=== PATIENT | male | born 1960 | race African-American/Black ===

== ENCOUNTER 2017-08-12 15:40 | Inpatient (IN) | payer MEDICARE, OTHER ==
--- NOTE | 2017-08-12 16:55 | ER Document Report ---
ED Medical Screen (RME) - General Chief Complaint: Shortness Of Breath Stated Complaint: BREATHING DIFFICULTY Time Seen by Provider: 08/12/17 16:54 Notes: Patient states that he has had several days of feeling short of breath and significant dyspnea on exertion. He has a history of 6 stents and 2 cabg TRAVEL OUTSIDE OF THE U.S. IN LAST 30 DAYS: No - Related Data Allergies/Adverse Reactions: Penicillins Allergy (Verified 08/12/17 15:48) shellfish derived Allergy (Verified 08/12/17 15:48) Past Medical History - Social History Chew tobacco use (# tins/day): No Frequency of alcohol use: None Drug Abuse: None - Past Medical History Cardiac Medical History: Reports: Hx Congestive Heart Failure, Hx Heart Attack - 5 Pulmonary Medical History: Reports: Hx COPD Renal/ Medical History: Denies: Hx Peritoneal Dialysis Past Surgical History: Reports: Hx Cardiac Catheterization, Hx Cardiac Surgery, Hx Open Heart Surgery - CABG EF 26%, Hx Orthopedic Surgery, Hx Vascular Surgery Physical Exam - Vital signs Vitals: Temp Pulse Resp BP Pulse Ox 97.8 F 99 24 H 109/72 92 08/12/17 15:43 08/12/17 15:43 08/12/17 15:43 08/12/17 15:43 08/12/17 15:43 Course - Vital Signs Vital signs: Temp Pulse Resp BP Pulse Ox 97.8 F 99 24 H 109/72 92 08/12/17 15:43 08/12/17 15:43 08/12/17 15:43 08/12/17 15:43 08/12/17 15:43
[2017-08-12 17:40] LABS: ABSOLUTE BASOPHILS # (AUTO) 0.1 10^3/uL (0.0-0.2); ABSOLUTE LYMPHOCYTES (AUTO) 2.2 10^3/uL (0.5-4.7); ABSOLUTE MONOCYTES (AUTO) 0.3 10^3/uL (0.1-1.4); ABSOLUTE NEUT (AUTO) 3.9 10^3/uL (1.7-8.2); BASOPHILS % (AUTO) 1.2 % (0-2); EOSINOPHILS % (AUTO) 0.4 % (0-6); HEMATOCRIT 41.7 % (37.9-51.0); HEMOGLOBIN 13.2 g/dL (13.5-17.0); LYMPHOCYTES % (AUTO) 33.9 % (13-45); MEAN CORPUSCULAR HEMOGLOBIN 28.8 pg (27.0-33.4); MEAN CORPUSCULAR HGB CONC 31.6 g/dL (32.0-36.0); MEAN CORPUSCULAR VOLUME 91 fl (80-97); MONOCYTES % (AUTO) 4.5 % (3-13); PLATELET COUNT 220 10^3/uL (150-450); RED BLOOD COUNT 4.57 10^6/uL (4.35-5.55); RED CELL DISTRIBUTION WIDTH 18.7 % (11.5-14.0); TOTAL CELLS COUNTED % (AUTO) 100 %; WHITE BLOOD COUNT 6.6 10^3/uL (4.0-10.5)
--- NOTE | 2017-08-12 17:43 | RADIOLOGY REPORT (SQ) ---
EXAM DESCRIPTION: CHEST PA/LAT COMPLETED DATE/TIME: 08/12/2017 5:30 pm REASON FOR STUDY: cough/sob COMPARISON: None. EXAM PARAMETERS: NUMBER OF VIEWS: two views TECHNIQUE: Digital Frontal and Lateral radiographic views of the chest acquired. RADIATION DOSE: NA LIMITATIONS: none FINDINGS: LUNGS AND PLEURA: There is blunting of the costophrenic angles consistent with small pleur al effusions. There is prominence of the interstitial markings suggesting interstitial edema. MEDIASTINUM AND HILAR STRUCTURES: No masses or contour abnormalities. HEART AND VASCULAR STRUCTURES: Cardiac silhouette is enlarged. There is pulmonary vascular congestio n BONES: No acute findings. HARDWARE: AICD device is identified in position OTHER: No other significant finding. IMPRESSION: Congestive failure pattern as noted above. TECHNICAL DOCUMENTATION: JOB ID: [id number] [employer]- All Rights Reserved Reading location - IP/workstation name: [email or web address]
[2017-08-12 18:03] LABS: ALANINE AMINOTRANSFERASE 60 U/L (21-72); ALBUMIN 3.7 g/dL (3.5-5.0); ALKALINE PHOSPHATASE 115 U/L (38-126); ANION GAP 13 (5-19); ASPARTATE AMINO TRANSFERASE 38 U/L (17-59); BILIRUBIN,DIRECT 0.8 mg/dL (0.0-0.4); BILIRUBIN,TOTAL 1.2 mg/dL (0.2-1.3); BLOOD UREA NITROGEN 24 mg/dL (7-20); CALCIUM 9.4 mg/dL (8.4-10.2); CARBON DIOXIDE 26 mmol/L (22-30); CHLORIDE 107 mmol/L (98-107); GLUCOSE 98 mg/dL (75-110); POTASSIUM 3.3 mmol/L (3.6-5.0); SODIUM 145.6 mmol/L (137-145); TOTAL PROTEIN 7.6 g/dL (6.3-8.2)
[2017-08-12 18:18] LABS: TROPONIN I 0.045 ng/mL
--- NOTE | 2017-08-12 20:20 | ER Document Report ---
ED Respiratory Problem - General Chief Complaint: Shortness Of Breath Stated Complaint: BREATHING DIFFICULTY Time Seen by Provider: 08/12/17 16:54 Mode of Arrival: Ambulatory Information source: Patient, Relative TRAVEL OUTSIDE OF THE U.S. IN LAST 30 DAYS: No - HPI Patient complains to provider of: Short of breath Onset: Last week Duration: Continuous Initiating Event: Out of meds Quality of pain: Other - CHRONIC, MUSCULOSKELETAL Context: Hx CHF, Hx COPD, Smoker - FORMERLY Short of Breath: Moderate Chest pain/discomfort: Center Cough: Nonproductive Sputum amount: None Associated symptoms: Chest pain/discomfort, Extertional dyspnea, Short of breath , Sweaty, Wheezing. denies: Ankle/leg swelling, Chills, Fever Worsened by: ANY EXERTION Similar symptoms previously: Yes Recently seen / treated by doctor: No Notes: Patient states he moved to [place] from [place] a few weeks ago, and since then has run out of many of his medications, including Xarelto, Entresto, cyclobenzaprine, morphine, OxyContin, and furosemide. He plans to stay in [place], and has no plans to return to [place]. - Related Data Allergies/Adverse Reactions: Penicillins Allergy (Verified 08/12/17 15:48) shellfish derived Allergy (Verified 08/12/17 15:48) Past Medical History - General Information source: Patient - Social History Smoking Status: Former Smoker Cigarette use (# per day): No Chew tobacco use (# tins/day): No Frequency of alcohol use: None Drug Abuse: None Lives with: Family Family History: None Patient has suicidal ideation: No Patient has homicidal ideation: No - Past Medical History Cardiac Medical History: Reports: Hx Congestive Heart Failure, Hx Coronary Artery Disease, Hx Heart Attack - 5, Hx Hypertension, Other - ISCHEMIC CARDIOMYOPATHY Pulmonary Medical History: Reports: Hx COPD Neurological Medical History: Reports: None Endocrine Medical History: Reports: None Renal/ Medical History: Reports: None. Denies: Hx Peritoneal Dialysis GI Medical History: Reports: None Musculoskeltal Medical History: Reports Hx Arthritis Psychiatric Medical History: Reports: None Past Surgical History: Reports: Hx Cardiac Catheterization, Hx Cardiac Surgery, Hx Open Heart Surgery - CABG EF 26%, Hx Orthopedic Surgery, Hx Vascular Surgery Review of Systems - Review of Systems Constitutional: No symptoms reported. denies: Chills, Fever EENT: No symptoms reported Cardiovascular: See HPI Respiratory: See HPI Gastrointestinal: No symptoms reported Musculoskeletal: See HPI Skin: No symptoms reported Neurological/Psychological: No symptoms reported Physical Exam - Vital signs Vitals: Temp Pulse Resp BP Pulse Ox 97.8 F 99 24 H 109/72 92 08/12/17 15:43 08/12/17 15:43 08/12/17 15:43 08/12/17 15:43 08/12/17 15:43 Interpretation: Tachypneic. No: Hypotensive, Tachycardic, Hypoxic, Febrile - General General appearance: Appears well, Alert In distress: None - HEENT Head: Normocephalic Eyes: Normal Conjunctiva: Normal Ears: Normal Nasal: Normal Mouth/Lips: Normal Mucous membranes: Normal - Respiratory Respiratory status: No respiratory distress Breath sounds: Wheezing - MILD END EXP., [place] - Cardiovascular Rhythm: Regular Heart sounds: Normal auscultation Murmur: No - Abdominal Inspection: Normal Distension: No distension - Back Back: Normal - Extremities General upper extremity: Normal inspection General lower extremity: Normal inspection. No: Tender, Edema - Neurological Neuro grossly intact: Yes Cognition: Normal Orientation: AAOx4 - Psychological Associated symptoms: Normal affect, Normal mood - Skin Skin Temperature: Warm Skin Moisture: Dry Skin Color: Normal Skin Turgor: Elastic Course - Vital Signs Vital signs: Temp Pulse Resp BP Pulse Ox 97.8 F 99 19 111/82 96 08/12/17 15:43 08/12/17 15:43 08/12/17 21:01 08/12/17 21:00 08/12/17 21:01 - Laboratory Result Diagrams: 08/12/17 17:20 08/12/17 17:20 Laboratory results interpreted by me: 08/12/17 08/12/17 08/12/17 17:20 17:20 17:20 Hgb 13.2 L MCHC 31.6 L RDW 18.7 H Sodium 145.6 H Potassium 3.3 L BUN 24 H Direct Bilirubin 0.8 H NT-Pro-B Natriuret Pep 34105 H - Diagnostic Test Radiology reviewed: Image reviewed, Reports reviewed - EKG Interpretation by Me EKG shows normal: Sinus rhythm Rate: Normal [place]/QRS: LBBB P Waves: LAE Heart block present: 1st Degree Discharge - Discharge Clinical Impression: CHF (congestive heart failure) Qualifiers: Heart failure type: unspecified Heart failure chronicity: acute on chronic Qualified Code(s): I50.9 - Heart failure, unspecified COPD (chronic obstructive pulmonary disease) Qualifiers: COPD type: emphysema Emphysema type: panlobular Qualified Code(s): J43.1 - Panlobular emphysema Coronary artery disease Qualifiers: Coronary Disease-Associated Artery/Lesion type: unspecified vessel or lesion type [place] vs. transplanted heart: [place] heart Associated angina: angina presence unspecified Qualified Code(s): I25.10 - Atherosclerotic heart disease of [place] coronary artery without angina pectoris Condition: Good Disposition: ADMITTED INPATIENT Admitting Provider: Hospitalist Unit Admitted: Telemetry
[2017-08-12] MEDS ORDERED: FUROSEMIDE INJ/PF 40 MG/4 ML SDV IV ONE (20:27)
[2017-08-12] MEDS ORDERED: ALBUTEROL SULFATE 0.083% NEB 2.5 MG/3 ML AMPUL NEB ONE (20:28)
[2017-08-12] MEDS ORDERED: POTASSIUM CHLORIDE 10 MEQ TABLET.SA PO ONE ×3 (20:32→22:30)
[2017-08-12] MEDS ORDERED: OXYCODONE HCL IR 5 MG TABLET PO ONE ×2 (21:48→23:11)
[2017-08-12] MEDS ORDERED: TAMSULOSIN HCL 0.4 MG CAP.SR.24H PO ONE (23:00)
--- NOTE | 2017-08-12 23:00 | EKG REPORT ---
SEVERITY:- ABNORMAL ECG - SINUS TACHYCARDIA PAIRED VENTRICULAR PREMATURE COMPLEXES FIRST DEGREE AV BLOCK PROBABLE LEFT ATRIAL ABNORMALITY LEFT BUNDLE BRANCH BLOCK : Confirmed by: Ok Owens 12-Aug-2017 22:59:24
[2017-08-12] MEDS ORDERED: ACETAMINOPHEN 325 MG TABLET PO PRN (23:13)
[2017-08-12] MEDS ORDERED: PROMETHAZINE HCL INJ 25 MG/1 ML VIAL IV PRN (23:13)
[2017-08-12] MEDS: CYCLOBENZAPRINE HCL 10 MG TABLET PO SCH (23:40)
--- NOTE | 2017-08-13 04:43 | PDOC H&P ---
History of Present Illness Patient complains of: Shortness of breath for about a month which got worse today. History of Present Illness: MARIN SCRUGGS JR is a 56 year old male history of end-stage ischemic cardiomyopathy/CHF/CAD (post 6 MIs/CABGx2/AICD/pacemaker with EF= 26% on echocardiogram done on 02/2017 per patient in [place]), end-stage lung disease ( not on home oxygen), TIAs x3, right leg DVT (post thrombectomy, on Xarelto) and chronic neck pain (opioids dependent) was admitted with above-mentioned complaint. The patient denies any fever but complains of some chills, no cough or sputum or any sick contacts. He also denies any chest pain but complains of having night sweats and lightheadedness, no syncope. He also has been complaining of severe headache and neck pain since he ran out of his opiates about 2 weeks ago. He denies any recent leg swelling but he has 3 pillow orthopnea and PND for the last 2 weeks. His exercise tolerance has been limited to 15-20 yards because of his shortness of breath. He continued to take his medications except Entresto since he ran out in the last 3 days. He said that the cold weather in [place] worsened his breathing. He is only on pro-air which he has been using very frequently in the last few days. He also mentioned that he did not have any abdominal pain but has been having diarrhea for the last 2 weeks since he ran out of his opiates, no urinary symptoms but he has generalized weakness. The patient also mentioned that he lost about 63 pounds (265 down to 202 in 45 days). He apparently relocated here from [place] in May 2017. In the ED, his temperature was 97.8, heart rate 99, respiratory rate 24, blood pressure 109/72 with oxygen saturation of 92% on room air. His WBC was 6.6 and his hemoglobin was 13.2. His initial troponin was 0.045 [place] proBNP [place] [address]841. He received 40 mg IV Lasix 1, 40 mEq potassium supplement x1 and albuterol nebulizer 1. Past Medical History Medical History: Other - According to the patient and based on previous records. Cardiac Medical History: Reports: Congestive Heart Failure - ICMP, Coronary Artery Disease - post CABG x2, Myocardial Infarction - x6, Hypertension, Peripheral Vascular Disease - DVT right post thrombectomy., Other - ISCHEMIC CARDIOMYOPATHY POST AICD/PPM. Pulmonary Medical History: Reports: Chronic Obstructive Pulmonary Disease (COPD ) - End stage lung disease. Neurological Medical History: Reports: Other - TIA x3 Endocrine Medical History: Reports: None Renal/ Medical History: Reports: None GI Medical History: Reports: None Musculoskeltal Medical History: Reports: Arthritis Psychiatric Medical History: Reports: None Past Surgical History Past Surgical History: Reports: Cardiac Catheterization, Coronary Artery Bypass Graft - x2; AICD/PPM, Knee Replacement, Orthopedic Surgery - sympathetic nerve release; b/l shoulders and hand sx.psoas ligament release, Vascular Surgery Social History Lives with: Family Smoking Status: Former Smoker Cigarettes Packs Per Day: 3 - 2-3 X a day for many years since 18 yrs old, he quit 2 months ago. Frequency of Alcohol Use: None Hx Recreational Drug Use: No - Advance Directive Resuscitation Status: Full Code Family History Family History: None Parental Family History Reviewed: Yes - Father: Throat cancer. Mother mitral valve prolapse. Children Family History Reviewed: No Sibling(s) Family History Reviewed.: Yes Medication/Allergy Allergies/Adverse Reactions: Penicillins Allergy (Verified 08/13/17 04:14) Anaphylaxis shellfish derived Allergy (Verified 08/13/17 04:15) Anaphylaxis Review of Systems ROS unobtainable: Other - Pertinent positives and negatives as detailed in the HPI. Physical Exam Vital Signs: Temp Pulse Resp BP Pulse Ox 97.8 F 99 19 111/82 96 08/12/17 15:43 08/12/17 15:43 08/12/17 21:01 08/12/17 21:00 08/12/17 21:01 Intake & Output 08/11/17 08/12/17 08/13/17 06:59 06:59 06:59 Output Total 300 Balance -300 Weight 91.8 kg General appearance: PRESENT: no acute distress, well-developed, well-nourished Head exam: PRESENT: atraumatic, normocephalic Eye exam: PRESENT: conjunctiva pink, EOMI. ABSENT: scleral icterus Mouth exam: PRESENT: moist, neck supple Neck exam: PRESENT: full ROM, JVD Respiratory exam: PRESENT: decreased breath sounds, rhonchi. ABSENT: rales, wheezes Cardiovascular exam: PRESENT: RRR, +S1, +S2 Pulses: PRESENT: normal dorsalis pedis pul GI/Abdominal exam: PRESENT: normal bowel sounds, soft. ABSENT: distended, rebound, tenderness Rectal exam: PRESENT: deferred Extremities exam: ABSENT: pedal edema Musculoskeletal exam: PRESENT: full ROM Neurological exam: PRESENT: alert, altered, awake, oriented to person, oriented to place - Left leg neuropathy (chronic)., motor sensory deficit Skin exam: PRESENT: dry, intact, warm. ABSENT: rash Results Laboratory Results: 08/12/17 17:20 08/12/17 17:20 08/12/17 08/12/17 17:20 17:20 WBC 6.6 RBC 4.57 Hgb 13.2 L Hct 41.7 MCV 91 MCH 28.8 MCHC 31.6 L RDW 18.7 H Plt Count 220 Seg Neutrophils % 60.0 Lymphocytes % 33.9 Monocytes % 4.5 Eosinophils % 0.4 Basophils % 1.2 Absolute Neutrophils 3.9 Absolute Lymphocytes 2.2 Absolute Monocytes 0.3 Absolute Eosinophils 0.0 Absolute Basophils 0.1 Sodium 145.6 H Potassium 3.3 L Chloride 107 Carbon Dioxide 26 Anion Gap 13 BUN 24 H Creatinine 0.95 Est GFR ( Amer) > 60 Est GFR (Non-Af Amer) > 60 Glucose 98 Calcium 9.4 Total Bilirubin 1.2 AST 38 ALT 60 Alkaline Phosphatase 115 Total Protein 7.6 Albumin 3.7 08/12/17 17:20 Troponin I 0.045 NT-Pro-B Natriuret Pep 03351 H EKG Comments: Lead EKG, and his rhythm, ventricular rate 100, axis -30, QTc prolongation, , left bundle branch block, PVCs, first-degree AV block, poor R-wave propagation. No previous 12-lead EKG to compare. Impressions: Chest X-Ray 08/12/17 16:54 IMPRESSION: Congestive failure pattern as noted above. Assessment & Plan - Diagnosis (1) Acute on chronic combined systolic and diastolic CHF, NYHA class 4 Is this a current diagnosis for this admission?: Yes Plan: CXR reviewed. Will continue to cycle cardiac enzymes and repeat a 12-lead EKG. We will also check an echocardiogram. According to the patient, his most recent echocardiogram on 02/2017 showed ejection fraction of 26%. He apparently moved from [place] to [place] so he can get on the heart transplant list. But since it was very strenuous on his health, he abandoned that plan. Will start 60 mg IV Lasix twice a day with strict I's and O's. He should resume Enteresto upon discharge. (2) End stage chronic obstructive pulmonary disease Is this a current diagnosis for this admission?: Yes Plan: Seems to be stable at this time. The patient is only on pro-air as needed at home. Will start Advair with albuterol nebulizer as needed. He may need nebulizer at home prior to discharge. (3) Elevated troponin Is this a current diagnosis for this admission?: Yes Plan: Borderline, in the setting of CHF and ischemic cardiomyopathy. Management as mentioned in #1. (4) Essential hypertension Is this a current diagnosis for this admission?: Yes Plan: The patient should resume his home BP medications. (5) Chronic pain syndrome Is this a current diagnosis for this admission?: Yes Plan: The patient used to take morphine sulfate 60 mg twice a day and oxycodone 30 mg every 6 hours. He said that he ran out of these medications for about 2 weeks ago. Will start him back on lower dose oxycodone and taper up. Further adjustments of his opiate regimen will be done gradually. He is trying to establish medical care in [place]. (6) CAD (coronary artery disease) Qualifiers: Coronary Disease-Associated Artery/Lesion type: [place] artery [place] vs. transplanted heart: [place] heart Associated angina: without angina Qualified Code(s): I25.10 - Atherosclerotic heart disease of [place] coronary artery without angina pectoris Is this a current diagnosis for this admission?: Yes Plan: And end-stage ischemic cardiomyopathy, post 6 MIs, CABG x2 and AICD/pacemaker in place. Will follow-up echocardiogram. Of note, the patient is on aspirin, Plavix and Xarelto. Cardiology may need to be consulted for further adjustment of his medications. I discussed CODE STATUS with him in the presence of his daughter and her . He still wants to be full code. - Time Time Spent: Greater than 70 Minutes - Inpatient Certification Based on my medical assessment, after consideration of the patient's comorbidities, presenting symptoms, or acuity I expect that the services needed warrant INPATIENT care.: Yes I certify that my determination is in accordance with my understanding of Medicare's requirements for reasonable and necessary INPATIENT services [42 CFR 412.3e].: Yes
[2017-08-13 06:00] LABS: HEMATOCRIT 38.8 % (37.9-51.0); HEMOGLOBIN 12.7 g/dL (13.5-17.0); MEAN CORPUSCULAR HEMOGLOBIN 29.3 pg (27.0-33.4); MEAN CORPUSCULAR HGB CONC 32.7 g/dL (32.0-36.0); MEAN CORPUSCULAR VOLUME 90 fl (80-97); PLATELET COUNT 172 10^3/uL (150-450); RED BLOOD COUNT 4.33 10^6/uL (4.35-5.55); WHITE BLOOD COUNT 6.2 10^3/uL (4.0-10.5)
[2017-08-13] MEDS: LANSOPRAZOLE 30 MG TAB.RAP.DR PO SCH (06:15)
[2017-08-13] MEDS: OXYCODONE HCL IR 5 MG TABLET PO PRN ×2 (06:15→22:02)
[2017-08-13 06:28] LABS: ANION GAP 12 (5-19); BLOOD UREA NITROGEN 23 mg/dL (7-20); CALCIUM 9.2 mg/dL (8.4-10.2); CARBON DIOXIDE 25 mmol/L (22-30); CHLORIDE 108 mmol/L (98-107); GLUCOSE 135 mg/dL (75-110); POTASSIUM 3.6 mmol/L (3.6-5.0)
[2017-08-13] MEDS: ALBUTEROL SULFATE 0.083% NEB 2.5 MG/3 ML AMPUL NEB PRN ×2 (08:31→21:18)
--- NOTE | 2017-08-13 09:11 | EKG REPORT ---
SEVERITY:- ABNORMAL ECG - SINUS TACHYCARDIA VENTRICULAR PREMATURE COMPLEX PROBABLE LEFT ATRIAL ABNORMALITY LEFT BUNDLE BRANCH BLOCK : Confirmed by: Ok Owens 13-Aug-2017 09:10:31
[2017-08-13] MEDS: FUROSEMIDE INJ/PF 100 MG/10 ML SDV IV SCH ×2 (09:37→22:39)
[2017-08-13] MEDS: ASPIRIN 81 MG TABLET, ENT COATED PO SCH (09:38)
[2017-08-13] MEDS: CYCLOBENZAPRINE HCL 10 MG TABLET PO SCH ×2 (09:38→22:02)
[2017-08-13] MEDS: CLOPIDOGREL BISULFATE 75 MG TABLET PO SCH (09:38)
[2017-08-13] MEDS ORDERED: (PENDING PHARMACY ID) (Sertraline Hcl [Zoloft] 200 MG) PO SCH (10:15)
--- NOTE | 2017-08-13 10:49 | PDOC PROGRESS REPORT ---
Subjective Progress Note for:: 08/13/17 Subjective:: Doing a little better today. Still feels SOB. Continues to have mild abdominal distention. Feels that he is diuresising well however not reflected on I&Os. Reason For Visit: CHF EXACERBATION Physical Exam Vital Signs: Temp Pulse Resp BP Pulse Ox 97.6 F 113 H 20 121/83 98 08/13/17 07:30 08/13/17 08:31 08/13/17 08:31 08/13/17 07:30 08/13/17 08:31 Intake & Output 08/12/17 08/13/17 08/14/17 06:59 06:59 06:59 Intake Total 500 Output Total 100 Balance 400 General appearance: PRESENT: no acute distress, cooperative, well-developed, well-nourished Head exam: PRESENT: normocephalic Mouth exam: PRESENT: moist Respiratory exam: PRESENT: crackles, decreased breath sounds, unlabored Cardiovascular exam: PRESENT: +S1, +S2 GI/Abdominal exam: PRESENT: distended, soft Extremities exam: PRESENT: pedal edema - Trace Neurological exam: PRESENT: alert, awake, CN II-XII grossly intact Psychiatric exam: PRESENT: appropriate affect, normal mood Results Laboratory Results: 08/13/17 05:27 08/13/17 05:27 08/13/17 08/13/17 08/13/17 05:27 05:27 05:27 WBC 6.2 RBC 4.33 L Hgb 12.7 L Hct 38.8 MCV 90 MCH 29.3 MCHC 32.7 RDW 18.0 H Plt Count 172 Sodium 145.0 Potassium 3.6 Chloride 108 H Carbon Dioxide 25 Anion Gap 12 BUN 23 H Creatinine 1.02 Est GFR ( Amer) > 60 Est GFR (Non-Af Amer) > 60 Glucose 135 H Calcium 9.2 Magnesium 1.8 08/13/17 05:27 Troponin I 0.047 Impressions: Chest X-Ray 08/12/17 16:54 IMPRESSION: Congestive failure pattern as noted above. Assessment & Plan - Diagnosis (1) Acute on chronic combined systolic and diastolic CHF, NYHA class 4 Is this a current diagnosis for this admission?: Yes Plan: Admitted with acute CHF exacerbation including elevated proBNP, congestion on CXR, and signs of volume overload on exam. CXR reviewed. Most recent echocardiogram on 02/2017 with EF 26%. He was followed by heart failure team in [place] however moved to [place], [place] so he can get on the heart transplant list. States that he was working with transplant team for about 2 months however due to personal reasons, abandoned that plan. He has re-located to [place], [place] and living with his daughter. He has established care with a PCP and working to find a HF/transplant team Inpatient management - Continue Lasix 60 mg IV BID, goal net neg 1L daily - Strict I's and O's, daily weight, cardiac diet - Continue coreg while in house, on Enteresto at home, continue at discharge - Given need for heart failure specialist, I recommended that he obtain a TTE upon establishing care. Recommended that he gets evaluated at a transplant capable center ([facility], [facility], or [facility] (?)). (2) End stage chronic obstructive pulmonary disease Is this a current diagnosis for this admission?: Yes Plan: Stable, on Proair as needed at home. Continue Advair and albuterol nebulizer as needed - Optomize medication regimen at time of discharge (3) Chronic pain syndrome Is this a current diagnosis for this admission?: Yes Plan: Takes morphine sulfate 60 mg BID and Oxycodone 30 mg q6 hours - Currently has Oxy-Ir 10mg q4 hours PRN ordered, can uptitrate based on need - Per discussion with patient, he may already have identified a pain management center in [place] (4) Elevated troponin Is this a current diagnosis for this admission?: Yes Plan: Most likely demand ischemia, initially trop elevated to 0.056, however trended down. Will not trend further unless new symptoms develop (5) Essential hypertension Is this a current diagnosis for this admission?: Yes Plan: Well controlled on current regimen - Currently on monitoring specialist - Would be OK to discontinue on 08/14 (6) Anxiety and depression Plan: Noted to have increased stress at home over the last 6 months - Currently on Sertraline 200mg daily AND Duloxetine 60 mg daily - Unclear why on both - Continued Sertraline while inpatient - Time Time Spent with patient: 35 or more minutes Anticipated discharge: Home with Homehealth Within: within 48 hours
[2017-08-13] MEDS ORDERED: SERTRALINE HCL 50 MG TABLET PO ONE (11:15)
[2017-08-13] MEDS: FLUTICASONE/SALMETEROL DISKUS 250-50 MCG/DOSE IH SCH ×2 (12:27→22:00)
[2017-08-13] MEDS ORDERED: LORAZEPAM INJ 2 MG/1 ML VIAL ONE (17:47)
[2017-08-13] MEDS: TAMSULOSIN HCL 0.4 MG CAP.SR.24H PO SCH (17:55)
[2017-08-13] MEDS: RIVAROXABAN 10 MG TABLET PO SCH (17:56)
--- NOTE | 2017-08-13 20:08 | XCELERA REPORT ---
[address] [address] Transthoracic Echocardiogram Report Name: MARIN SCRUGGS JR Age: 56 yrs Gender: Male : 1960 Patient Status: Inpatient Patient Location: [address] [place] [address] Study Date: 08/13/2017 01:12 PM Height: 74 in Weight: 202 lb BSA: 2.2 m2 Procedure: A complete two-dimensional transthoracic echocardiogram was performed (2D, M-mode, spectral and color flow Doppler). The study was technically adequate with some images being suboptimal in quality. Reason For Study: chest pain Ordering Physician: JAQUAN FLOWERS Performed By: Mariella Lopez Interpretation Summary Left ventricular systolic function is severely reduced. The Ejection Fraction estimate is <20% Doppler measurements suggest reversible restrictive left ventricular relaxation, which is associated with grade III/IV or moderate diastolic dysfunction The left ventricle is severely dilated. There is severe global hypokinesis of the left ventricle. Septal motion is consistent with conduction abnormality The right ventricular systolic function is severely reduced. The right ventricle is grossly normal size. The left atrium is moderately dilated. The right atrium is mildly dilated. There is a moderate amount of mitral regurgitation There is no mitral valve stenosis. There is no aortic valve stenosis No aortic regurgitation is present. There is a mild amount of tricuspid regurgitation There is moderate pulmonary hypertension by echo Right ventricular systolic pressure is estimated to be elevated at 50- 60mmHg. The aortic root is not well visualized. The inferior vena cava appeared normal and decreased < 50% with respiration (RAP 10-15 mmHg) There is no pericardial effusion. MMode/2D Measurements & Calculations RVDd: 3.7 cm LVIDd: 7.5 cm FS: 4.0 % Ao root diam: 2.6 cm IVSd: 0.63 cm LVIDs: 7.2 cm EDV(Teich): 301.0 ml LVPWd: 0.71 cm ESV(Teich): 274.5 ml Ao root area: 5.4 cm2 EF(Teich): 8.8 % Doppler Measurements & Calculations MV E max giuseppe: MV dec slope: Ao V2 max: AI max giuseppe: 96.4 cm/sec 109.0 cm/sec 278.0 cm/sec 616.3 cm/sec2 Ao max PG: AI max PG: MV dec time: 4.8 mmHg 30.9 mmHg 0.16 sec AI dec slope: 70.0 cm/sec2 AI P1/2t: 1163 msec LV V1 max PG: PA V2 max: PI end-d giuseppe: TR max giuseppe: 1.3 mmHg 73.6 cm/sec 226.0 cm/sec 335.8 cm/sec LV V1 max: PA max P.2 mmHg TR max P.1 cm/sec 45.1 mmHg Left Ventricle The left ventricle is severely dilated. Left ventricular systolic function is severely reduced. The Ejection Fraction estimate is <20%. Doppler measurements suggest reversible restrictive left ventricular relaxation, which is associated with grade III/IV or moderate diastolic dysfunction. There is severe global hypokinesis of the left ventricle. Septal motion is consistent with conduction abnormality. Right Ventricle The right ventricle is grossly normal size. The right ventricular systolic function is severely reduced. Atria The right atrium is mildly dilated. The left atrium is moderately dilated. Interarterial septum not well visualized and not well dopplered. Cannot comment on ASD/PFO presence. Mitral Valve The mitral valve is grossly normal. There is no mitral valve stenosis. There is a moderate amount of mitral regurgitation. Aortic Valve The aortic valve is not well visualized secondary to technical limitations. There is no aortic valve stenosis. No aortic regurgitation is present. Tricuspid Valve The tricuspid valve is not well visualized secondary to technical limitations. There is no tricuspid stenosis. There is a mild amount of tricuspid regurgitation. There is moderate pulmonary hypertension by echo. Right ventricular systolic pressure is estimated to be elevated at 50- 60mmHg. Pulmonic Valve The pulmonic valve is not well visualized. Great Vessels The aortic root is not well visualized. The inferior vena cava appeared normal and decreased < 50% with respiration (RAP 10-15 mmHg). Effusions There is no pericardial effusion. : JAQUAN FLOWERS > Ok Owens
[2017-08-13] MEDS ORDERED: ATORVASTATIN CALCIUM 10 MG TABLET PO SCH (22:00)
[2017-08-13] MEDS: SACUBITRIL/VALSARTAN 24 MG/26 MG TABLET PO SCH (22:01)
[2017-08-13] MEDS: ATORVASTATIN CALCIUM 80 MG TABLET PO SCH (22:45)
[2017-08-14] MEDS: LORAZEPAM INJ 2 MG/1 ML VIAL IV PRN (02:10)
[2017-08-14] MEDS ORDERED: FUROSEMIDE INJ/PF 100 MG/10 ML SDV IV SCH (06:00)
[2017-08-14] MEDS: LANSOPRAZOLE 30 MG TAB.RAP.DR PO SCH (06:33)
[2017-08-14] MEDS: CLOPIDOGREL BISULFATE 75 MG TABLET PO SCH (09:36)
[2017-08-14] MEDS: SERTRALINE HCL 50 MG TABLET PO SCH (09:36)
[2017-08-14] MEDS: CYCLOBENZAPRINE HCL 10 MG TABLET PO SCH ×2 (09:36→22:25)
[2017-08-14] MEDS: ASPIRIN 81 MG TABLET, ENT COATED PO SCH (09:36)
[2017-08-14] MEDS: FLUTICASONE/SALMETEROL DISKUS 250-50 MCG/DOSE IH SCH ×2 (09:38→22:26)
[2017-08-14] MEDS: SACUBITRIL/VALSARTAN 24 MG/26 MG TABLET PO SCH ×2 (09:38→22:25)
[2017-08-14] MEDS: OXYCODONE HCL IR 5 MG TABLET PO PRN ×2 (11:34→18:23)
--- NOTE | 2017-08-14 16:03 | PDOC PROGRESS REPORT ---
Subjective Progress Note for:: 08/14/17 Subjective:: Patient relates that he would like to go home. He admits that he still short of breath. Patient approached about CODE STATUS and he is full code. Review of system All organ systems evaluated and negative except as in subjective All significant diagnostics and laboratories have been reviewed Reason For Visit: CHF EXACERBATION Physical Exam Vital Signs: Temp Pulse Resp BP Pulse Ox 98.0 F 111 H 24 H 108/72 95 08/14/17 03:42 08/14/17 03:42 08/14/17 03:42 08/14/17 03:42 08/14/17 03:42 Intake & Output 08/13/17 08/14/17 08/15/17 06:59 06:59 06:59 Intake Total 500 521 Output Total 100 Balance 400 521 General appearance: PRESENT: cooperative, other - Moderate respiratory distress Head exam: PRESENT: atraumatic, normocephalic Eye exam: PRESENT: conjunctiva pink, EOMI, PERRLA Ear exam: PRESENT: normal external ear exam Mouth exam: PRESENT: moist Neck exam: PRESENT: full ROM. ABSENT: JVD, lymphadenopathy, tenderness Respiratory exam: PRESENT: crackles, decreased breath sounds Cardiovascular exam: PRESENT: RRR. ABSENT: diastolic murmur, systolic murmur GI/Abdominal exam: PRESENT: normal bowel sounds, soft. ABSENT: tenderness Extremities exam: PRESENT: full ROM Musculoskeletal exam: PRESENT: ambulatory Neurological exam: PRESENT: alert, awake, oriented to person, oriented to place , oriented to time, oriented to situation, CN II-XII grossly intact Psychiatric exam: PRESENT: appropriate affect, normal mood Skin exam: PRESENT: intact, normal color Results Laboratory Results: 08/13/17 05:27 08/13/17 05:27 08/13/17 08/13/17 05:27 11:08 Troponin I 0.047 0.040 Impressions: Chest X-Ray 08/12/17 16:54 IMPRESSION: Congestive failure pattern as noted above. Assessment & Plan - Diagnosis (1) Acute on chronic combined systolic and diastolic CHF, NYHA class 4 Is this a current diagnosis for this admission?: Yes Plan: Patient having all the complications possible due to long-standing systolic and diastolic dysfunction including pulmonary hypertension. Will continue interest to. Will add low-dose Imdur and will restart low-dose Coreg (2) CAD (coronary artery disease) Qualifiers: Coronary Disease-Associated Artery/Lesion type: [place] artery [place] vs. transplanted heart: [place] heart Associated angina: without angina Qualified Code(s): I25.10 - Atherosclerotic heart disease of [place] coronary artery without angina pectoris Is this a current diagnosis for this admission?: Yes Plan: Patient to be seen by palliative care (3) COPD (chronic obstructive pulmonary disease) Qualifiers: COPD type: emphysema Emphysema type: panlobular Qualified Code(s): J43.1 - Panlobular emphysema Is this a current diagnosis for this admission?: Yes Plan: Continue current management (4) Chronic pain syndrome Is this a current diagnosis for this admission?: Yes Plan: Continue current management (5) Elevated troponin Is this a current diagnosis for this admission?: Yes Plan: Patient found to have myocardial demand ischemia - Time Time Spent with patient: 15-24 minutes Medications reviewed and adjusted accordingly: Yes Anticipated discharge: Home with Homehealth Within: within 48 hours - Inpatient Certification Based on my medical assessment, after consideration of the patient's comorbidities, presenting symptoms, or acuity I expect that the services needed warrant INPATIENT care.: Yes I certify that my determination is in accordance with my understanding of Medicare's requirements for reasonable and necessary INPATIENT services [42 CFR 412.3e].: Yes Medical Necessity: Need Close Monitoring Due to Risk of Patient Decompensation, Need For Continuous Telemetry Monitoring
[2017-08-14] MEDS ORDERED: DIPHENHYDRAMINE HCL 50 MG/ML VIAL IV PRN (16:07)
[2017-08-14] MEDS ORDERED: MORPHINE SULFATE 10 MG/ML INJ IV PRN (16:09)
[2017-08-14] MEDS: RIVAROXABAN 10 MG TABLET PO SCH (17:38)
[2017-08-14] MEDS: TAMSULOSIN HCL 0.4 MG CAP.SR.24H PO SCH (17:38)
[2017-08-14] MEDS: FUROSEMIDE INJ/PF 40 MG/4 ML SDV IV SCH (17:42)
[2017-08-14] MEDS ORDERED: ISOSORBIDE MONONITRATE 30 MG TAB.ER.24H PO SCH (18:00)
[2017-08-14] MEDS ORDERED: CARVEDILOL 3.125 MG TABLET PO SCH (22:00)
[2017-08-14] MEDS: GABAPENTIN 300 MG CAPSULE PO SCH (22:25)
[2017-08-14] MEDS: ATORVASTATIN CALCIUM 80 MG TABLET PO SCH (22:25)
[2017-08-15 06:05] LABS: HEMATOCRIT 35.9 % (37.9-51.0); HEMOGLOBIN 11.9 g/dL (13.5-17.0); MEAN CORPUSCULAR HEMOGLOBIN 29.1 pg (27.0-33.4); MEAN CORPUSCULAR VOLUME 88 fl (80-97); PLATELET COUNT 175 10^3/uL (150-450); RED BLOOD COUNT 4.08 10^6/uL (4.35-5.55); RED CELL DISTRIBUTION WIDTH 18.1 % (11.5-14.0); WHITE BLOOD COUNT 7.1 10^3/uL (4.0-10.5)
[2017-08-15 06:20] LABS: ANION GAP 8 (5-19); BLOOD UREA NITROGEN 20 mg/dL (7-20); CALCIUM 8.9 mg/dL (8.4-10.2); CARBON DIOXIDE 26 mmol/L (22-30); CHLORIDE 106 mmol/L (98-107); GLUCOSE 95 mg/dL (75-110); POTASSIUM 3.8 mmol/L (3.6-5.0); SODIUM 139.8 mmol/L (137-145)
[2017-08-15 06:25] LABS: ARTERIAL BLOOD BASE EXCESS 2.8 mmol/L; ARTERIAL BLOOD H2CO3 1.08 mmol/L (1.05-1.35); ARTERIAL BLOOD HCO3 26.1 mmol/L (20-26); ARTERIAL BLOOD PCO2 35.8 mmHg (35-45); ARTERIAL BLOOD PH 7.48 (7.35-7.45); ARTERIAL BLOOD PO2 55.3 mmHg (80-100); ARTERIAL BLOOD TOTAL CO2 27.2 mmol/L (23-27)
[2017-08-15 06:26] LABS: ARTERIAL BLOOD FIO2 3L
[2017-08-15] MEDS: FUROSEMIDE INJ/PF 40 MG/4 ML SDV IV SCH ×2 (06:26→19:43)
[2017-08-15] MEDS: LANSOPRAZOLE 30 MG TAB.RAP.DR PO SCH (06:51)
[2017-08-15] MEDS ORDERED: DEXTROSE 5%-WATER 250 ML with NOREPINEPHRINE BITARTRATE 4 MG IV PRN ×2 (06:59)
[2017-08-15] MEDS ORDERED: IPRATROPIUM/ALBUTEROL 0.5-2.5 MG/3 ML AMPUL NEB ONE (08:23)
--- NOTE | 2017-08-15 08:26 | RADIOLOGY REPORT (SQ) ---
EXAM DESCRIPTION: CHEST SINGLE VIEW COMPLETED DATE/TIME: 08/15/2017 6:46 am REASON FOR STUDY: DYSPNEA COMPARISON: 08/12/2017 EXAM PARAMETERS: NUMBER OF VIEWS: One view. TECHNIQUE: Single frontal radiographic view of the chest acquired. RADIATION DOSE: NA LIMITATIONS: None. FINDINGS: LUNGS AND PLEURA: Trace right pleural effusion, blunting the lateral costophrenic sulcus. There are Huma lines with mild interstitial edema in the mid and lower lungs, similar compared to . Upper lobes are hyperlucent from obstructive disease. MEDIASTINUM AND HILAR STRUCTURES: No masses. Contour normal. HEART AND VASCULAR STRUCTURES: Marked cardiomegaly BONES: No acute findings. HARDWARE: Left-sided dual lead pacemaker OTHER: No other significant finding. IMPRESSION: Fluid overload or congestive failure superimposed on obstructive lung disease. Intersti tial edema with trace right pleural effusion similar compared to 08/12/2017 TECHNICAL DOCUMENTATION: JOB ID: [id number] [employer]- All Rights Reserved Reading location - IP/workstation name: [email or web address]
[2017-08-15] MEDS ORDERED: MORPHINE SULFATE SR 30 MG TABLET PO SCH (10:00)
[2017-08-15] MEDS ORDERED: ISOSORBIDE MONONITRATE 30 MG TAB.ER.24H PO SCH (10:00)
[2017-08-15] MEDS: GABAPENTIN 300 MG CAPSULE PO SCH ×2 (10:16→22:22)
[2017-08-15] MEDS: CLOPIDOGREL BISULFATE 75 MG TABLET PO SCH (10:17)
[2017-08-15] MEDS: MIDODRINE HCL 5 MG TABLET PO SCH ×3 (10:17→19:45)
[2017-08-15] MEDS: ASPIRIN 81 MG TABLET, ENT COATED PO SCH (10:18)
[2017-08-15] MEDS: CYCLOBENZAPRINE HCL 10 MG TABLET PO SCH ×2 (10:18→23:00)
[2017-08-15] MEDS: MORPHINE SULFATE SR 30 MG TABLET PO SCH ×2 (10:19→23:00)
[2017-08-15] MEDS: OXYCODONE HCL IR 5 MG TABLET PO PRN ×3 (10:20→23:11)
[2017-08-15] MEDS: FLUTICASONE/SALMETEROL DISKUS 250-50 MCG/DOSE IH SCH ×2 (10:21→22:21)
[2017-08-15] MEDS: SERTRALINE HCL 50 MG TABLET PO SCH (10:25)
[2017-08-15] MEDS ORDERED: MAG HYDROX/AL HYDROX/SIMETH SUSP 30 ML UDCUP PO PRN (12:53)
[2017-08-15] MEDS ORDERED: LIDOCAINE 2% VISCOUS SOLN 20 ML UDCUP PO PRN (12:53)
[2017-08-15] MEDS ORDERED: METOCLOPRAMIDE HCL ORAL SOLN 10 MG/10 ML UDCUP PO PRN (12:54)
[2017-08-15] MEDS: IPRATROPIUM/ALBUTEROL 0.5-2.5 MG/3 ML AMPUL NEB SCH ×2 (13:44→20:12)
--- NOTE | 2017-08-15 13:50 | PDOC PROGRESS REPORT ---
Subjective Progress Note for:: 08/15/17 Subjective:: Patient relates that feels better. Patient had any other episode of hypotension and PUBLIC RELATIONS STUDIES DIRECTOR was called. Blood pressure was in the 70s and fluid bolus was ordered with further improvement. Patient had been made aware that some medications have been as suggested. He was encouraged as to talk to his and daughter regarding his CODE STATUS. Patient wishes for him to go home and have a talk with his family. He was made aware that for now he was not ready to go home. Review of system All organ systems evaluated and negative except as in subjective All significant diagnostics and laboratories have been reviewed Reason For Visit: CHF EXACERBATION Physical Exam Vital Signs: Temp Pulse Resp BP Pulse Ox 99.2 F 100 28 H 125/78 97 08/15/17 09:52 08/15/17 09:52 08/15/17 09:52 08/15/17 09:52 08/15/17 09:52 Intake & Output 08/14/17 08/15/17 08/16/17 06:59 06:59 06:59 Intake Total 521 2060 Output Total 2880 Balance 521 -820 General appearance: PRESENT: cooperative, thin Head exam: PRESENT: atraumatic, normocephalic Eye exam: PRESENT: conjunctiva pink, EOMI, PERRLA Ear exam: PRESENT: normal external ear exam Mouth exam: PRESENT: moist Neck exam: PRESENT: full ROM. ABSENT: JVD, lymphadenopathy, tenderness Respiratory exam: PRESENT: crackles, decreased breath sounds Cardiovascular exam: PRESENT: RRR. ABSENT: diastolic murmur, systolic murmur GI/Abdominal exam: PRESENT: normal bowel sounds, soft. ABSENT: tenderness Extremities exam: PRESENT: full ROM, +2 edema Musculoskeletal exam: PRESENT: ambulatory Neurological exam: PRESENT: alert, awake, oriented to person, oriented to place , oriented to time, oriented to situation, CN II-XII grossly intact Psychiatric exam: PRESENT: appropriate affect, normal mood Skin exam: PRESENT: intact, normal color Results Laboratory Results: 08/15/17 05:48 08/15/17 05:48 08/15/17 08/15/17 08/15/17 05:48 05:48 06:05 WBC 7.1 RBC 4.08 L Hgb 11.9 L Hct 35.9 L MCV 88 MCH 29.1 MCHC 33.0 RDW 18.1 H Plt Count 175 Carbonic Acid 1.08 HCO3/H2CO3 Ratio 24:1 ABG pH 7.48 H ABG pCO2 35.8 ABG pO2 55.3 L ABG HCO3 26.1 H ABG O2 Saturation 91.0 L ABG Base Excess 2.8 FiO2 3L Sodium 139.8 Potassium 3.8 Chloride 106 Carbon Dioxide 26 Anion Gap 8 BUN 20 Creatinine 0.88 Est GFR ( Amer) > 60 Est GFR (Non-Af Amer) > 60 Glucose 95 Calcium 8.9 08/13/17 08/13/17 08/15/17 05:27 11:08 05:48 Troponin I 0.047 0.040 NT-Pro-B Natriuret Pep 6460 H Impressions: Chest X-Ray 08/15/17 00:00 IMPRESSION: Fluid overload or congestive failure superimposed on obstructive lung disease. Interstitial edema with trace right pleural effusion similar compared to 08/12/2017 Assessment & Plan - Diagnosis (1) Acute on chronic combined systolic and diastolic CHF, NYHA class 4 Is this a current diagnosis for this admission?: Yes Plan: Patient having all the complications possible due to long-standing systolic and diastolic dysfunction including pulmonary hypertension. Blood pressure improved after fluid bolus. Will place patient on middle drain. Will adjust hydralazine and Imdur. Will hold of interest to. Will decrease Lasix IV. To restart Coreg. Will follow up response closely (2) CAD (coronary artery disease) Qualifiers: Coronary Disease-Associated Artery/Lesion type: [place] artery [place] vs. transplanted heart: [place] heart Associated angina: without angina Qualified Code(s): I25.10 - Atherosclerotic heart disease of [place] coronary artery without angina pectoris Is this a current diagnosis for this admission?: Yes Plan: Patient to be seen by palliative care (3) COPD (chronic obstructive pulmonary disease) Qualifiers: COPD type: emphysema Emphysema type: panlobular Qualified Code(s): J43.1 - Panlobular emphysema Is this a current diagnosis for this admission?: Yes Plan: Will place on DuoNeb scheduled and albuterol as needed. Will try Solu-Medrol IV and Advair (4) Chronic pain syndrome Is this a current diagnosis for this admission?: Yes Plan: Continue gabapentin. To add MS Contin and continue Percocet 10 mg every 4 hours as needed for breakthrough pain. Will adjust pain management regimen as needed since may be contributing to dyspnea complaints (5) Elevated troponin Is this a current diagnosis for this admission?: Yes Plan: Patient found to have myocardial demand ischemia - Time Time Spent with patient: 15-24 minutes Medications reviewed and adjusted accordingly: Yes Anticipated discharge: Home with Homehealth Within: within 72 hours - Inpatient Certification Based on my medical assessment, after consideration of the patient's comorbidities, presenting symptoms, or acuity I expect that the services needed warrant INPATIENT care.: Yes I certify that my determination is in accordance with my understanding of Medicare's requirements for reasonable and necessary INPATIENT services [42 CFR 412.3e].: Yes Medical Necessity: Need Close Monitoring Due to Risk of Patient Decompensation, Need For Continuous Telemetry Monitoring, Need for Pain Control
[2017-08-15] MEDS ORDERED: HYDRALAZINE HCL 10 MG TABLET PO SCH (14:00)
[2017-08-15] MEDS: LORAZEPAM INJ 2 MG/1 ML VIAL IV PRN (14:50)
[2017-08-15] MEDS ORDERED: ONDANSETRON HCL INJ/PF 4 MG/2 ML SDV IV PRN (14:50)
[2017-08-15] MEDS ORDERED: LORAZEPAM INJ 2 MG/1 ML VIAL IV PRN (14:52)
--- NOTE | 2017-08-15 15:16 | EKG REPORT ---
SEVERITY:- ABNORMAL ECG - SINUS TACHYCARDIA PAIRED VENTRICULAR PREMATURE COMPLEXES LEFT BUNDLE BRANCH BLOCK : Confirmed by: Ok Owens 15-Aug-2017 15:16:09
[2017-08-15] MEDS: PANTOPRAZOLE SODIUM 40 MG VIAL IV SCH (19:44)
[2017-08-15] MEDS: METHYLPREDNISOLONE INJ 40 MG/1 ML SDV IV SCH (19:44)
[2017-08-15] MEDS: TAMSULOSIN HCL 0.4 MG CAP.SR.24H PO SCH (19:45)
[2017-08-15] MEDS: RIVAROXABAN 10 MG TABLET PO SCH (19:45)
[2017-08-15] MEDS: HYDRALAZINE HCL 10 MG TABLET PO SCH (19:50)
[2017-08-15] MEDS ORDERED: CARVEDILOL 6.25 MG TABLET PO SCH (22:00)
[2017-08-15] MEDS: ATORVASTATIN CALCIUM 80 MG TABLET PO SCH (22:22)
[2017-08-15] MEDS: CARVEDILOL 6.25 MG TABLET PO SCH (23:00)
[2017-08-16] MEDS: OXYCODONE HCL IR 5 MG TABLET PO PRN ×5 (04:30→18:53)
[2017-08-16] MEDS: HYDRALAZINE HCL 10 MG TABLET PO SCH (06:22)
[2017-08-16] MEDS: FUROSEMIDE INJ/PF 40 MG/4 ML SDV IV SCH ×2 (06:22→18:53)
[2017-08-16] MEDS: GABAPENTIN 300 MG CAPSULE PO SCH ×3 (06:29→21:51)
[2017-08-16] MEDS: METHYLPREDNISOLONE INJ 40 MG/1 ML SDV IV SCH ×2 (06:29→18:52)
[2017-08-16] MEDS: PANTOPRAZOLE SODIUM 40 MG VIAL IV SCH ×2 (06:29→18:50)
[2017-08-16] MEDS: IPRATROPIUM/ALBUTEROL 0.5-2.5 MG/3 ML AMPUL NEB SCH ×3 (07:52→19:54)
[2017-08-16] MEDS ORDERED: MORPHINE SULFATE SR 30 MG TABLET PO SCH (10:01)
[2017-08-16] MEDS: CARVEDILOL 6.25 MG TABLET PO SCH ×2 (10:54→21:51)
[2017-08-16] MEDS: CLOPIDOGREL BISULFATE 75 MG TABLET PO SCH (10:55)
[2017-08-16] MEDS: ASPIRIN 81 MG TABLET, ENT COATED PO SCH (10:56)
[2017-08-16] MEDS: MORPHINE SULFATE SR 30 MG TABLET PO SCH ×2 (10:57→22:17)
[2017-08-16] MEDS: FLUTICASONE/SALMETEROL DISKUS 250-50 MCG/DOSE IH SCH ×2 (10:58→21:50)
[2017-08-16] MEDS ORDERED: MIDODRINE HCL 5 MG TABLET PO ONE (11:00)
[2017-08-16] MEDS: SACUBITRIL/VALSARTAN 24 MG/26 MG TABLET PO SCH (11:53)
[2017-08-16] MEDS ORDERED: ISOSORBIDE MONONITRATE 30 MG TAB.ER.24H PO SCH (12:00)
[2017-08-16] MEDS: CYCLOBENZAPRINE HCL 10 MG TABLET PO SCH ×2 (14:41→21:50)
--- NOTE | 2017-08-16 16:37 | PDOC PROGRESS REPORT ---
Subjective Progress Note for:: 08/16/17 Subjective:: Patient reports that breathing is better. His pain gets worse off/on. is at bedside and is asking about Entresto since a healthcare project manager back in [place] insisted that under no circumstances he was not to stop this medication. Accordingly patient is on BiPAP as outpatient. Nurse will try to get BiPAP settings. and patient had been made aware that Entresto had to be held due to hypotension. Patient had been informed yesterday. Both patient and were made aware that we were trying to optimize blood pressure in order to restart Entesto. Review of system All organ systems evaluated and negative except as in subjective All significant diagnostics and laboratories have been reviewed Reason For Visit: CHF EXACERBATION Physical Exam Vital Signs: Temp Pulse Resp BP Pulse Ox 97.8 F 95 20 103/68 100 08/16/17 03:46 08/16/17 03:46 08/16/17 03:46 08/16/17 03:46 08/16/17 03:46 Intake & Output 08/15/17 08/16/17 08/17/17 06:59 06:59 06:59 Intake Total 2060 1005 Output Total 2880 325 Balance -820 680 Weight 88.4 kg General appearance: PRESENT: cooperative, thin Head exam: PRESENT: atraumatic, normocephalic Eye exam: PRESENT: conjunctiva pink, EOMI, PERRLA Ear exam: PRESENT: normal external ear exam Mouth exam: PRESENT: moist Neck exam: PRESENT: full ROM. ABSENT: JVD, lymphadenopathy, tenderness Respiratory exam: PRESENT: crackles, decreased breath sounds Cardiovascular exam: PRESENT: RRR. ABSENT: diastolic murmur, systolic murmur Vascular exam: PRESENT: normal capillary refill GI/Abdominal exam: PRESENT: normal bowel sounds, soft. ABSENT: tenderness Extremities exam: PRESENT: full ROM, +1 edema Musculoskeletal exam: PRESENT: ambulatory Neurological exam: PRESENT: alert, awake, oriented to person, oriented to place , oriented to time, oriented to situation, CN II-XII grossly intact Psychiatric exam: PRESENT: appropriate affect, normal mood Skin exam: PRESENT: intact, normal color Results Laboratory Results: 08/15/17 05:48 08/15/17 05:48 08/13/17 08/13/17 08/15/17 05:27 11:08 05:48 Troponin I 0.047 0.040 NT-Pro-B Natriuret Pep 6460 H Impressions: Chest X-Ray 08/15/17 00:00 IMPRESSION: Fluid overload or congestive failure superimposed on obstructive lung disease. Interstitial edema with trace right pleural effusion similar compared to 08/12/2017 Assessment & Plan - Diagnosis (1) Acute on chronic combined systolic and diastolic CHF, NYHA class 4 Is this a current diagnosis for this admission?: Yes Plan: Patient having all the complications possible due to long-standing systolic and diastolic dysfunction including pulmonary hypertension. To increase dose of midodrine. His blood pressure stable will restart Entresto. To continue Coreg and Imdur. Discontinue hydralazine. Patient and was made aware that had to lower down Coreg dose. Hold of diuretic and follow-up response (2) CAD (coronary artery disease) Qualifiers: Coronary Disease-Associated Artery/Lesion type: [place] artery [place] vs. transplanted heart: [place] heart Associated angina: without angina Qualified Code(s): I25.10 - Atherosclerotic heart disease of [place] coronary artery without angina pectoris Is this a current diagnosis for this admission?: Yes Plan: Patient to be seen by palliative care (3) COPD (chronic obstructive pulmonary disease) Qualifiers: COPD type: emphysema Emphysema type: panlobular Qualified Code(s): J43.1 - Panlobular emphysema Is this a current diagnosis for this admission?: Yes Plan: Continue current management (4) Chronic pain syndrome Is this a current diagnosis for this admission?: Yes Plan: Increase gabapentin dose. To increase MS Contin and to place him on OxyContin IR outpatient dose Will adjust pain management regimen as needed since may be contributing to dyspnea complaints (5) Elevated troponin Is this a current diagnosis for this admission?: Yes Plan: Patient found to have myocardial demand ischemia (6) Pulmonary hypertension Is this a current diagnosis for this admission?: Yes Plan: To continue oxygen supplementation. Will hold of diuresis for now. To place patient on BiPAP (7) Anemia Qualifiers: Anemia type: unspecified type Qualified Code(s): D64.9 - Anemia, unspecified Is this a current diagnosis for this admission?: Yes Plan: Keep monitoring since on the downward trend - Time Time Spent with patient: 25-34 minutes Medications reviewed and adjusted accordingly: Yes Anticipated discharge: Home Within: within 72 hours - Inpatient Certification Based on my medical assessment, after consideration of the patient's comorbidities, presenting symptoms, or acuity I expect that the services needed warrant INPATIENT care.: Yes I certify that my determination is in accordance with my understanding of Medicare's requirements for reasonable and necessary INPATIENT services [42 CFR 412.3e].: Yes Medical Necessity: Need Close Monitoring Due to Risk of Patient Decompensation, Need For Continuous Telemetry Monitoring
[2017-08-16] MEDS: LACTULOSE SYRUP 20 GM/30 ML UDCUP PO SCH (18:49)
[2017-08-16] MEDS: RIVAROXABAN 10 MG TABLET PO SCH (18:50)
[2017-08-16] MEDS: MIDODRINE HCL 5 MG TABLET PO SCH (18:52)
[2017-08-16] MEDS: TAMSULOSIN HCL 0.4 MG CAP.SR.24H PO SCH (18:53)
[2017-08-16] MEDS: POLYETHYLENE GLYCOL 3350 POWDER 17 GM/1 PACKET PO SCH (18:54)
[2017-08-16] MEDS: ATORVASTATIN CALCIUM 80 MG TABLET PO SCH (21:50)
[2017-08-17 05:20] LABS: ABSOLUTE MONOCYTES (AUTO) 0.3 10^3/uL (0.1-1.4); ABSOLUTE NEUT (AUTO) 6.3 10^3/uL (1.7-8.2); BASOPHILS % (AUTO) 0.4 % (0-2); HEMATOCRIT 39.1 % (37.9-51.0); HEMOGLOBIN 12.7 g/dL (13.5-17.0); LYMPHOCYTES % (AUTO) 13.1 % (13-45); MEAN CORPUSCULAR HEMOGLOBIN 28.9 pg (27.0-33.4); MEAN CORPUSCULAR HGB CONC 32.3 g/dL (32.0-36.0); MEAN CORPUSCULAR VOLUME 90 fl (80-97); MONOCYTES % (AUTO) 3.4 % (3-13); PLATELET COUNT 199 10^3/uL (150-450); RED BLOOD COUNT 4.37 10^6/uL (4.35-5.55); RED CELL DISTRIBUTION WIDTH 18.5 % (11.5-14.0); SEGMENTED NEUTROPHILS % (AUTO) 83.1 % (42-78); TOTAL CELLS COUNTED % (AUTO) 100 %; WHITE BLOOD COUNT 7.6 10^3/uL (4.0-10.5)
[2017-08-17] MEDS: PANTOPRAZOLE SODIUM 40 MG VIAL IV SCH (05:24)
[2017-08-17] MEDS: GABAPENTIN 300 MG CAPSULE PO SCH ×3 (05:24→21:25)
[2017-08-17] MEDS: CYCLOBENZAPRINE HCL 10 MG TABLET PO SCH ×3 (05:24→21:25)
[2017-08-17] MEDS: METHYLPREDNISOLONE INJ 40 MG/1 ML SDV IV SCH (05:24)
[2017-08-17 05:43] LABS: ANION GAP 12 (5-19); BLOOD UREA NITROGEN 23 mg/dL (7-20); CALCIUM 9.5 mg/dL (8.4-10.2); CARBON DIOXIDE 25 mmol/L (22-30); CHLORIDE 102 mmol/L (98-107); GLUCOSE 134 mg/dL (75-110); POTASSIUM 4.8 mmol/L (3.6-5.0); SODIUM 139.3 mmol/L (137-145)
[2017-08-17] MEDS: FUROSEMIDE INJ/PF 40 MG/4 ML SDV IV SCH (06:27)
[2017-08-17] MEDS: IPRATROPIUM/ALBUTEROL 0.5-2.5 MG/3 ML AMPUL NEB SCH (08:03)
[2017-08-17] MEDS: CLOPIDOGREL BISULFATE 75 MG TABLET PO SCH (10:05)
[2017-08-17] MEDS: ASPIRIN 81 MG TABLET, ENT COATED PO SCH (10:05)
[2017-08-17] MEDS: FLUTICASONE/SALMETEROL DISKUS 250-50 MCG/DOSE IH SCH ×2 (10:06→21:26)
[2017-08-17] MEDS: LACTULOSE SYRUP 20 GM/30 ML UDCUP PO SCH ×2 (10:07→17:08)
[2017-08-17] MEDS: MORPHINE SULFATE SR 30 MG TABLET PO SCH ×2 (10:13→22:58)
[2017-08-17] MEDS: MIDODRINE HCL 5 MG TABLET PO SCH ×2 (10:14→17:04)
[2017-08-17] MEDS: CARVEDILOL 6.25 MG TABLET PO SCH ×2 (10:15→21:27)
[2017-08-17] MEDS: POLYETHYLENE GLYCOL 3350 POWDER 17 GM/1 PACKET PO SCH ×2 (10:15→17:12)
[2017-08-17] MEDS ORDERED: CARVEDILOL 6.25 MG TABLET PO ONE (11:00)
[2017-08-17] MEDS: SACUBITRIL/VALSARTAN 24 MG/26 MG TABLET PO SCH (12:21)
[2017-08-17] MEDS: ISOSORBIDE MONONITRATE 30 MG TAB.ER.24H PO SCH (12:21)
--- NOTE | 2017-08-17 15:18 | PDOC PROGRESS REPORT ---
Subjective Progress Note for:: 08/17/17 Subjective:: Patient refers that his breathing is better. He states that with the treatment rendered at this facility he started to feel better. He still does not have any local physicians and need assistance in that regard. Review of system All organ systems evaluated and negative except as in subjective All significant diagnostics and laboratories have been reviewed Reason For Visit: CHF EXACERBATION Physical Exam Vital Signs: Temp Pulse Resp BP Pulse Ox 97.8 F 101 H 18 98/60 L 98 08/17/17 04:03 08/17/17 06:21 08/17/17 04:03 08/17/17 06:21 08/17/17 04:03 Intake & Output 08/16/17 08/17/17 08/18/17 06:59 06:59 06:59 Intake Total 1005 771 Output Total 325 1000 Balance 680 -229 Weight 88.4 kg 88.6 kg General appearance: PRESENT: no acute distress, cooperative, thin Head exam: PRESENT: atraumatic, normocephalic Eye exam: PRESENT: conjunctiva pink, EOMI, PERRLA Neck exam: PRESENT: full ROM. ABSENT: JVD, lymphadenopathy, tenderness Respiratory exam: PRESENT: clear to auscultation yajaira Cardiovascular exam: PRESENT: RRR. ABSENT: diastolic murmur, systolic murmur GI/Abdominal exam: PRESENT: normal bowel sounds, soft. ABSENT: tenderness Extremities exam: PRESENT: full ROM, +1 edema Musculoskeletal exam: PRESENT: ambulatory Neurological exam: PRESENT: alert, awake, oriented to person, oriented to place , oriented to time, oriented to situation, CN II-XII grossly intact Psychiatric exam: PRESENT: appropriate affect, normal mood Skin exam: PRESENT: intact, normal color Results Laboratory Results: 08/17/17 04:38 08/17/17 04:38 08/17/17 08/17/17 04:38 04:38 WBC 7.6 RBC 4.37 Hgb 12.7 L Hct 39.1 MCV 90 MCH 28.9 MCHC 32.3 RDW 18.5 H Plt Count 199 Seg Neutrophils % 83.1 H Lymphocytes % 13.1 Monocytes % 3.4 Eosinophils % 0.0 Basophils % 0.4 Absolute Neutrophils 6.3 Absolute Lymphocytes 1.0 Absolute Monocytes 0.3 Absolute Eosinophils 0.0 Absolute Basophils 0.0 Sodium 139.3 Potassium 4.8 Chloride 102 Carbon Dioxide 25 Anion Gap 12 BUN 23 H Creatinine 0.98 Est GFR ( Amer) > 60 Est GFR (Non-Af Amer) > 60 Glucose 134 H Calcium 9.5 Magnesium 1.9 08/13/17 08/13/17 08/15/17 05:27 11:08 05:48 Troponin I 0.047 0.040 NT-Pro-B Natriuret Pep 6460 H Impressions: Chest X-Ray 08/15/17 00:00 IMPRESSION: Fluid overload or congestive failure superimposed on obstructive lung disease. Interstitial edema with trace right pleural effusion similar compared to 08/12/2017 Assessment & Plan - Diagnosis (1) Acute on chronic combined systolic and diastolic CHF, NYHA class 4 Is this a current diagnosis for this admission?: Yes Plan: Patient having all the complications possible due to long-standing systolic and diastolic dysfunction including pulmonary hypertension. In my opinion patient does have biventricular heart failure. Patient has been made aware about his blood pressure being on the low side. I will increase Coreg and will keep contrast and Imdur. Will place hold parameters. To continue diuresis. Outpatient regimen had been adjusted to a lower dose except Entresto (he is taking the lowest dose possible). Patient has been perfusing well despite his blood pressure and feels better. To consult Dr. Owens since patient will need a local range conservationist as well as sleep study to get the CPAP if qualifies (2) CAD (coronary artery disease) Qualifiers: Coronary Disease-Associated Artery/Lesion type: [place] artery [place] vs. transplanted heart: [place] heart Associated angina: without angina Qualified Code(s): I25.10 - Atherosclerotic heart disease of [place] coronary artery without angina pectoris Is this a current diagnosis for this admission?: Yes Plan: Patient to be seen by palliative care (3) COPD (chronic obstructive pulmonary disease) Qualifiers: COPD type: emphysema Emphysema type: panlobular Qualified Code(s): J43.1 - Panlobular emphysema Is this a current diagnosis for this admission?: Yes Plan: To discontinue Solu-Medrol IV and continue LABA and add Spiriva (4) Chronic pain syndrome Is this a current diagnosis for this admission?: Yes Plan: Continue current regimen since getting better pain management (5) Elevated troponin Is this a current diagnosis for this admission?: Yes Plan: Patient found to have myocardial demand ischemia (6) Pulmonary hypertension Is this a current diagnosis for this admission?: Yes Plan: To continue oxygen supplementation. Continue BiPAP (7) Anemia Qualifiers: Anemia type: unspecified type Qualified Code(s): D64.9 - Anemia, unspecified Is this a current diagnosis for this admission?: Yes Plan: Appears the changes were due to dilutional issues. Stable - Time Time Spent with patient: 15-24 minutes Medications reviewed and adjusted accordingly: Yes Anticipated discharge: Home with Homehealth Within: within 48 hours - Inpatient Certification Based on my medical assessment, after consideration of the patient's comorbidities, presenting symptoms, or acuity I expect that the services needed warrant INPATIENT care.: Yes I certify that my determination is in accordance with my understanding of Medicare's requirements for reasonable and necessary INPATIENT services [42 CFR 412.3e].: Yes Medical Necessity: Need Close Monitoring Due to Risk of Patient Decompensation, Need For Continuous Telemetry Monitoring
[2017-08-17] MEDS: LANSOPRAZOLE 30 MG TAB.RAP.DR PO SCH (17:04)
[2017-08-17] MEDS: RIVAROXABAN 10 MG TABLET PO SCH (17:04)
[2017-08-17] MEDS: TAMSULOSIN HCL 0.4 MG CAP.SR.24H PO SCH (17:04)
[2017-08-17] MEDS: FUROSEMIDE 20 MG TABLET PO SCH (17:04)
[2017-08-17] MEDS ORDERED: MAGNESIUM SULFATE/D5W 1 GM/100 ML RTUPB IV ONE (18:30)
[2017-08-17] MEDS: IPRATROPIUM/ALBUTEROL 0.5-2.5 MG/3 ML AMPUL NEB PRN (20:25)
[2017-08-17] MEDS: ATORVASTATIN CALCIUM 80 MG TABLET PO SCH (21:25)
[2017-08-17] MEDS: OLANZAPINE 2.5 MG TABLET PO SCH (21:27)
--- NOTE | 2017-08-18 00:08 | Palliative Consultation Report ---
Consultation From:: KUSH WILLOUGHBY - HPI Chief Complaint: weakness, weight loss dyspnea HPI: Palliative Care Consult visit 08/17/17 2:05- 3: 45 PM Appreciate palliative care consult with this unfortunate 56 year old Arnold who has been suffering with Cardiomyopathy, CHF, CAD ( 6 prior NC's, CABG, refused LVAT a few months ago), chronic respiratory disease, history DVT , and chronic neck pain from previous trauma. He came to the ER because he was having chills and weakness as well as chest pain. He was out of his ENtresto and also out of his opiods that he has used for years for his chronic neck pain ( MS Contin 60mg BID and Oxycodone 30 q 6 hours). His is also present for this visit. He tells me that he has lost 64 pounds in about 2 months. He has recently moved to his daughters home in [place] from [place] because his was not comfortable in the humidity. He had a good relationship with his senior it specialist in [place] who , he says is amazed that he is still alive. The senior it specialist ordered many outpatient tests to discover the etiology of the severe weight loss, but hemant said all tests were negative. Mr. French feels better since coming to hospital. He is using oxygen per NC at 3 L/min and has no dyspnea. He has C-Pap at home but it is broken. He does not use oxygen at home. He states he feels he is very near the end of his life as he has had such dramatic decline in the past two months. He said before leaving [place] , he could walk to local store, rest a while and walk home. Now he cannot walk more than 20 yards. He says he is not having any new pain and appetite has been good. He has not had edema, weight loss has been all muscle mass. Mrs French is having a very difficult time with the realization that patient is dying. She talks around the topic expressing concern for everything from getting a house for [place], to furniture to celebrating Denominational Holidays. She cries when I bring her back to topic of his decline, need for care and his choices for EOL care. They have several children, living with one daughter. Mr. French completed a MOST form, insisting that he wants CPR and is agreeable for mechanical ventilation for eight days only. His states she can uphold his wishes. if the need arises. He did not want to consider someone else as HCPOA. We discussed support and help at home. Discussed home health with Palliative Care CORRECTIONAL OFFICER CHIEF visits and also discussed hospice. Explained that the focus of home health is aggressive treatment with return to hospital for care if needed, and the focus of hospice is comfort care at his home. I explained that hospice does not utilize ICU, ventilators etc. Patient said he is ready to stop hospital care, although he wants CPR. He requests hospice to follow him at home, not only for his care and comfort but also to help his family with their grief and anxiety. Onset: Last week Onset/Duration: Gradual Quality of Pain: Fullness, Pressure Severity: Moderate Associated Symptoms: Chest pain, Nausea, Weakness Exacerbated by: Walking Past Medical History(Consults) - General Information Source: Relative, [facility] Records Home Medications: Albuterol Sulfate [Proair HFA Inhalation Aerosol 8.5 gm MDI] 2 puff IH Q4HP PRN 08/13/17 Aspirin [Aspirin EC] 81 mg PO DAILY 08/13/17 Atorvastatin Calcium [Lipitor 80 mg Tablet] 80 mg PO QHS 08/13/17 Carvedilol [Coreg 6.25 mg Tablet] 6.25 mg PO Q12 08/13/17 Clopidogrel Bisulfate [Plavix 75 mg Tablet] 75 mg PO DAILY 08/13/17 Cyclobenzaprine HCl [Flexeril 10 mg Tablet] 10 mg PO Q12 08/13/17 Duloxetine HCl [Cymbalta] 60 mg PO DAILY 08/13/17 Furosemide [Lasix 20 mg Tablet] 20 mg PO DAILY 08/13/17 Linaclotide [Linzess 145 Mcg Capsule] 145 mcg PO QHS 08/13/17 Morphine Sulfate [Morphine Sulfate ER] 60 mg PO Q12 08/13/17 Oxycodone HCl [Roxicodone] 30 mg PO Q6 08/13/17 Rivaroxaban [Xarelto] 20 mg PO DAILY 08/13/17 Sacubitril/Valsartan [Entresto 24 mg-26 mg Tablet] 1 tab PO Q12 08/13/17 Sertraline HCl [Zoloft] 200 mg PO DAILY 08/13/17 Tamsulosin HCl [Flomax 0.4 mg Cap.sr] 0.4 mg PO DAILY 08/13/17 Allergies/Adverse Reactions: iodine Allergy (Unknown, Verified 08/14/17 15:46) Penicillins Allergy (Verified 08/13/17 04:14) Anaphylaxis shellfish derived Allergy (Verified 08/13/17 04:15) Anaphylaxis - Social History Lives with: Family Family History: None Parental Family History Reviewed: No Children Family History Reviewed: No Sibling(s) Family History Reviewed.: No Smoking Status: Former Smoker Cigarettes Packs Per Day: 3 - 2-3 X a day for many years since 18 yrs old, he quit 2 months ago. Cigars Per Day: 8 Pipes Per Day: 0 Number of Years Smokin Last Time Smoked: 2 moinths ago Frequency of Alcohol Use: None Hx Recreational Drug Use: No Drugs: None Hx Prescription Drug Abuse: No - Past Medical History Cardiac Medical History: Reports: Hx Congestive Heart Failure - ICMP, Hx Coronary Artery Disease - post CABG x2, Hx DVT, Hx Heart Attack - x6, Hx Hypertension, Hx Peripheral Vascular Disease - DVT right post thrombectomy., Other - ISCHEMIC CARDIOMYOPATHY POST AICD/PPM. Pulmonary Medical History: Reports: Hx COPD - End stage lung disease. Neurological Medical History: Reports: None, Other - TIA x3 Endocrine Medical History: Reports: None Renal/ Medical History: Reports: None. Denies: Hx Peritoneal Dialysis GI Medical History: Reports: None Musculoskeltal Medical History: Reports Hx Arthritis, Reports Hx Muscle Weakness Psychiatric Medical History: Reports: None, Hx Anxiety, Hx Depression - Surgical History Past Surgical History: Reports: Hx Cardiac Catheterization, Hx Cardiac Surgery, Hx Coronary Artery Bypass Graft - x2; AICD/PPM, Hx Open Heart Surgery - CABG EF 26%, Hx Orthopedic Surgery - sympathetic nerve release; b/l shoulders and hand sx.psoas ligament release, Hx Vascular Surgery Review of systems Constitutional: Chills, Malaise, Weakness, Weight loss Cardiovascular: Chest pain, Orthopnea, Dyspnea Respiratory: Cough, Short of breath Gastrointestinal: Abdominal pain, Nausea Male Genitourinary: No symptoms reported Musculoskeltal: Joint pain, Neck pain Hematologic/Lymphatic: Easy bruising Neurological/Psychological: Depression, Anxiety, Weakness Ojective:Exam Vital Signs: Temp Pulse Resp BP Pulse Ox 97.7 F 99 16 86/71 L 100 08/17/17 19:26 08/17/17 21:25 08/17/17 21:25 08/17/17 19:26 08/17/17 21:25 Intake & Output 08/16/17 08/17/17 08/18/17 06:59 06:59 06:59 Intake Total 1005 771 760 Output Total 325 1000 1100 Balance 124 -229 -340 Weight 88.4 kg 88.6 kg - General General Appearance: Alert, Anxious In distress: None Note:: Patietn sitting on side of bed without dyspnea or chest pain . Appears weak. No conversational dyspnea Speaks openly about his prognosis and realization that his decline has been profound in the past two months with large amount of lost muscle mass, strength, weight and stamina. Using O2 per NC at 3 L/min. No edema noted in extremities. No nausea or vomiting. Noted to have anxiety. - HEENT Head: Normocephalic Pupils: PERRLA Mouth/Lips: Normal Mucous membrane: Normal - Neck Neck: Supple - Respiratory Respiratory Status: No respiratory distress - Cardiovascular Rhythm: Regular Pulses: Normal: Radial - Extremities Upper extremity: Normal inspection Lower extremities: Normal inspection - Neurological Cognition: Normal Orientation: AAOx4, Alert Speech: Normal Cranial nerves: Normal Motor exam: Weakness Sensory: Normal Objective-Diagnostic Laboratory: 08/17/17 04:38 08/17/17 04:38 08/17/17 08/17/17 04:38 04:38 WBC 7.6 RBC 4.37 Hgb 12.7 L Hct 39.1 MCV 90 MCH 28.9 MCHC 32.3 RDW 18.5 H Plt Count 199 Seg Neutrophils % 83.1 H Lymphocytes % 13.1 Monocytes % 3.4 Eosinophils % 0.0 Basophils % 0.4 Absolute Neutrophils 6.3 Absolute Lymphocytes 1.0 Absolute Monocytes 0.3 Absolute Eosinophils 0.0 Absolute Basophils 0.0 Sodium 139.3 Potassium 4.8 Chloride 102 Carbon Dioxide 25 Anion Gap 12 BUN 23 H Creatinine 0.98 Est GFR ( Amer) > 60 Est GFR (Non-Af Amer) > 60 Glucose 134 H Calcium 9.5 Magnesium 1.9 08/13/17 08/13/17 08/15/17 05:27 11:08 05:48 Troponin I 0.047 0.040 NT-Pro-B Natriuret Pep 6460 H Plan and Recommendation Plan and Recommendation: Introduced patient to Jesenia Apple RN, hospice liason to give him information about hospice. I asked him to discuss with his and we would check with him tomorrow. He said he didnt need to discuss, he knew he wants to go home with hospice care to help him and to help his family. MOST form given to patient and copy placed on his [facility] chart. Discussed his wishes for CPR in relation to hospice care. Tried to help with her concerns and issues, but she did not accept any of the support. SHe is concerned with finding a home for the two of them, preparing for visits from their children, celebrating Denominational holidays, etc. Hemant became impatietn with her but they oth said that he is to make decisions for his own care. Nurse liason will send medical info to hospice and follow up to be sure hospice can be there when patient goes home. Equipment needs discussed. Also discussed opiods used in pain control while in [place]. Symptoms probably partially related to opiod withdrawl if patient out of pain meds. Discussed other issues related to prognosis and EOL care. No PCP for hospice orders. Hemant has not yet established with PCP or pain clinic. Will follow. - Time Spent with Patient Time spent with patient: 40 to 60 Minutes Time: 100 min with dahlia marmolejo, consultaitonwith nurses, time with jair
[2017-08-18] MEDS: CYCLOBENZAPRINE HCL 10 MG TABLET PO SCH ×3 (05:21→21:32)
[2017-08-18] MEDS: GABAPENTIN 300 MG CAPSULE PO SCH ×3 (05:21→21:32)
[2017-08-18] MEDS: LANSOPRAZOLE 30 MG TAB.RAP.DR PO SCH ×2 (05:22→17:08)
[2017-08-18] MEDS: OXYCODONE HCL IR 5 MG TABLET PO PRN (07:43)
[2017-08-18] MEDS: OLANZAPINE 2.5 MG TABLET PO SCH ×2 (09:07→21:32)
[2017-08-18] MEDS: FUROSEMIDE 20 MG TABLET PO SCH ×2 (09:07→17:07)
[2017-08-18] MEDS: CLOPIDOGREL BISULFATE 75 MG TABLET PO SCH (09:08)
[2017-08-18] MEDS: ASPIRIN 81 MG TABLET, ENT COATED PO SCH (09:08)
[2017-08-18] MEDS: CARVEDILOL 6.25 MG TABLET PO SCH ×2 (09:08→21:31)
[2017-08-18] MEDS: MIDODRINE HCL 5 MG TABLET PO SCH ×3 (09:08→17:07)
[2017-08-18] MEDS: FLUTICASONE/SALMETEROL DISKUS 250-50 MCG/DOSE IH SCH ×2 (09:10→21:31)
[2017-08-18] MEDS: TIOTROPIUM BROMIDE DPI 5 CAP/KIT (18 MCG/CAP) IH SCH (09:11)
[2017-08-18] MEDS: POLYETHYLENE GLYCOL 3350 POWDER 17 GM/1 PACKET PO SCH ×2 (09:14→17:12)
[2017-08-18] MEDS: LACTULOSE SYRUP 20 GM/30 ML UDCUP PO SCH ×2 (09:14→17:12)
--- NOTE | 2017-08-18 09:55 | PDOC CONSULTATION ---
Consultation Consult Date: 08/17/17 Attending physician:: JENNIFER LAMBERT Consult reason:: Ventricular tachycardia History of Present Illness Admission Date/PCP: 08/12/17 23:25 Patient complains of: Shortness of breath History of Present Illness: MARIN SCRUGGS JR is a 56 year old male history of end-stage ischemic cardiomyopathy/CHF/CAD (post 6 MIs/CABGx2/AICD/pacemaker with EF= 26% on echocardiogram done on 02/2017 per patient in [place]), end-stage lung disease ( not on home oxygen), TIAs x3, right leg DVT (post thrombectomy, on Xarelto) and chronic neck pain (opioids dependent) was admitted with above-mentioned complaint. The patient denies any fever but complains of some chills, no cough or sputum or any sick contacts. He also denies any chest pain but complains of having night sweats and lightheadedness, no syncope. He also has been complaining of severe headache and neck pain since he ran out of his opiates about 2 weeks ago. He denies any recent leg swelling but he has 3 pillow orthopnea and PND for the last 2 weeks. His exercise tolerance has been limited to 15-20 yards because of his shortness of breath. He continued to take his medications except Entresto since he ran out in the last 3 days. He said that the cold weather in [place] worsened his breathing. He is only on pro-air which he has been using very frequently in the last few days. He also mentioned that he did not have any abdominal pain but has been having diarrhea for the last 2 weeks since he ran out of his opiates, no urinary symptoms but he has generalized weakness. The patient also mentioned that he lost about 63 pounds (265 down to 202 in 45 days). He apparently relocated here from [place] in May 2017. In the ED, his temperature was 97.8, heart rate 99, respiratory rate 24, blood pressure 109/72 with oxygen saturation of 92% on room air. His WBC was 6.6 and his hemoglobin was 13.2. His initial troponin was 0.045 and [place] proBNP [place] 00775. He received 40 mg IV Lasix 1, 40 mEq potassium supplement x1 and albuterol nebulizer 1. This history obtained by the hospitalist was reviewed and confirmed. Consultation was seek because of ventricular tachycardia, nonsustained being noted on telemetry monitoring. Patient has a defibrillator in place. However this is noted to be single-chamber. He denied any recent sustained palpitations , syncope, near syncope. Patient currently took himself off the transplant list. Is trying to go home and hospice is being arranged. However CODE STATUS still full code but he declines any operative management. Patient is aware that he could be a candidate for LVAD device as a bridge to transplantation but declines to pursue that option. Past Medical History Cardiac Medical History: Reports: Congestive Heart Failure - ICMP, Coronary Artery Disease - post CABG x2, Myocardial Infarction - x6, Hypertension, Peripheral Vascular Disease - DVT right post thrombectomy., Other - ISCHEMIC CARDIOMYOPATHY POST AICD/PPM. Pulmonary Medical History: Reports: Chronic Obstructive Pulmonary Disease (COPD ) - End stage lung disease. Neurological Medical History: Reports: None, Other - TIA x3 Endocrine Medical History: Reports: None Renal/ Medical History: Reports: None GI Medical History: Reports: None Musculoskeltal Medical History: Reports: Arthritis Psychiatric Medical History: Reports: None, Depression Past Surgical History Past Surgical History: Reports: Cardiac Catheterization, Coronary Artery Bypass Graft - x2; AICD/PPM, Knee Replacement, Orthopedic Surgery - sympathetic nerve release; b/l shoulders and hand sx.psoas ligament release, Vascular Surgery Social History Information Source: Patient Lives with: Family Smoking Status: Former Smoker Cigarettes Packs Per Day: 3 - 2-3 X a day for many years since 18 yrs old, he quit 2 months ago. Cigars Per Day: 8 Pipes Per Day: 0 Number of Years Smokin Frequency of Alcohol Use: None Hx Recreational Drug Use: No Drugs: None Hx Prescription Drug Abuse: No - Advance Directive Resuscitation Status: Full Code Surrogate healthcare decision maker:: Patient's is the surrogate decision-maker Family History Family History: CAD Parental Family History Reviewed: Yes Children Family History Reviewed: Yes Sibling(s) Family History Reviewed.: Yes Medication/Allergy Home Medications: Albuterol Sulfate [Proair HFA Inhalation Aerosol 8.5 gm MDI] 2 puff IH Q4HP PRN 08/13/17 Aspirin [Aspirin EC] 81 mg PO DAILY 08/13/17 Atorvastatin Calcium [Lipitor 80 mg Tablet] 80 mg PO QHS 08/13/17 Carvedilol [Coreg 6.25 mg Tablet] 6.25 mg PO Q12 08/13/17 Clopidogrel Bisulfate [Plavix 75 mg Tablet] 75 mg PO DAILY 08/13/17 Cyclobenzaprine HCl [Flexeril 10 mg Tablet] 10 mg PO Q12 08/13/17 Duloxetine HCl [Cymbalta] 60 mg PO DAILY 08/13/17 Furosemide [Lasix 20 mg Tablet] 20 mg PO DAILY 08/13/17 Linaclotide [Linzess 145 Mcg Capsule] 145 mcg PO QHS 08/13/17 Morphine Sulfate [Morphine Sulfate ER] 60 mg PO Q12 08/13/17 Oxycodone HCl [Roxicodone] 30 mg PO Q6 08/13/17 Rivaroxaban [Xarelto] 20 mg PO DAILY 08/13/17 Sacubitril/Valsartan [Entresto 24 mg-26 mg Tablet] 1 tab PO Q12 08/13/17 Sertraline HCl [Zoloft] 200 mg PO DAILY 08/13/17 Tamsulosin HCl [Flomax 0.4 mg Cap.sr] 0.4 mg PO DAILY 08/13/17 Allergies/Adverse Reactions: iodine Allergy (Unknown, Verified 08/14/17 15:46) Penicillins Allergy (Verified 08/13/17 04:14) Anaphylaxis shellfish derived Allergy (Verified 08/13/17 04:15) Anaphylaxis Review of Systems Review of Systems: Please see history of present illness and past medical history as wall. Constitutional: No fever or chills reported. Patient has noted significant weight loss. He has also noted marked fatigue and tiredness. Head : No recent chronic headaches, recent head injury. Eyes: No recent eye pain, diplopia, redness, discharge, acute visual changes. Ears: No recent chronic ear pain, acute hearing loss, ear discharge. Oral cavity: No recent ulcerations, bleeding, oral cavity discomfort. Neck: No recent acute neck pain reported. Hematologic: No recent easy bruising or bleeding or hematologic malignancy reported. Lymphatic: No recent lymphatic malignancy, chronic lymphadenopathy reported yet Cardiovascular system review: See history of present illness. Respiratory system review: No recent chronic cough, hemoptysis, blood clots in the lungs reported. Shortness of breath on exertion. Patient denied any recent defibrillator discharges. Gastrointestinal system review: Negative for any recent acute or chronic abdominal pain, hematemesis, melena, recent change in bowel habits. Genitourinary system review: No recent acute or chronic hematuria, flank pain, UTI etc. reported. Skin system review: Negative for any recent abnormal bruising, no rash, no pruritus reported. Neurologic: No prior history of strokes, mini strokes, seizure disorder. Psychologic: No history of major psychosis or major depression reported. Musculoskeletal: Minor aches and pains reported. No acute joint swelling reported. Endocrine: No recent polyuria, polydipsia, recent heat or cold intolerance. Physical Exam Vital Signs: Temp Pulse Resp BP Pulse Ox 97.8 F 99 18 107/67 97 08/17/17 16:44 08/17/17 16:44 08/17/17 16:44 08/17/17 16:44 08/17/17 17:30 Intake & Output 08/16/17 08/17/17 08/18/17 06:59 06:59 06:59 Intake Total 1005 771 760 Output Total 325 1000 1100 Balance 680 -229 -340 Weight 88.4 kg 88.6 kg Exam: GENERAL: well-nourished and in no acute distress. Alert and oriented x3 HEAD: Atraumatic, normocephalic. EYES: Pupils equal round and reactive to light, extraocular movements intact, sclera anicteric, conjunctiva are normal. ENT: TMs normal, nares patent, oropharynx clear without exudates. Moist mucous membranes. No oral ulcerations or bleeding gums noted NECK: supple without lymphadenopathy. Trachea is central. No cervical or axillary lymphadenopathy noted. Carotids are 2+, JVD 8-10 cm LUNGS: Respiration seems nonlabored, no significant accessory muscle action noted. Breath sounds clear to auscultation bilaterally and equal noted. No wheezes rales or rhonchi noted. No significant dullness noted on percussion. CHEST: Palpation of the chest wall shows no significant chest wall tenderness. No other significant abnormalities noted. 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 ABDOMEN: Soft, no significant tenderness appreciated, normoactive bowel sounds. No guarding, no rebound. No rigidity noted . No masses appreciated. EXTREMITIES: Pedal pulses are 1-2+, no calf tenderness noted. No clubbing or cyanosis.trace to 1+ pedal edema noted NEUROLOGICAL: Focused neurological exam showed no significant neurologic deficit. Normal speech, no focal weakness appreciated. PSYCH: Normal mood, normal affect. Judgment and insight within normal limits. SKIN: No significant ecchymosis, skin is noted to be warm. MUSCULOSKELETAL EXAM: No significant acute joint swelling noted. Loss of muscle mass noted. Results Laboratory Results: 08/17/17 04:38 08/17/17 04:38 08/17/17 08/17/17 04:38 04:38 WBC 7.6 RBC 4.37 Hgb 12.7 L Hct 39.1 MCV 90 MCH 28.9 MCHC 32.3 RDW 18.5 H Plt Count 199 Seg Neutrophils % 83.1 H Lymphocytes % 13.1 Monocytes % 3.4 Eosinophils % 0.0 Basophils % 0.4 Absolute Neutrophils 6.3 Absolute Lymphocytes 1.0 Absolute Monocytes 0.3 Absolute Eosinophils 0.0 Absolute Basophils 0.0 Sodium 139.3 Potassium 4.8 Chloride 102 Carbon Dioxide 25 Anion Gap 12 BUN 23 H Creatinine 0.98 Est GFR ( Amer) > 60 Est GFR (Non-Af Amer) > 60 Glucose 134 H Calcium 9.5 Magnesium 1.9 08/13/17 08/13/17 08/15/17 05:27 11:08 05:48 Troponin I 0.047 0.040 NT-Pro-B Natriuret Pep 6460 H EKG Comments: Twelve-lead EKG from the shows sinus rhythm, left bundle branch block pattern with occasional APCs and VPCs. Impressions: Chest X-Ray 08/15/17 00:00 IMPRESSION: Fluid overload or congestive failure superimposed on obstructive lung disease. Interstitial edema with trace right pleural effusion similar compared to 08/12/2017 Assessment & Plan - Diagnosis (1) Acute on chronic combined systolic and diastolic CHF, NYHA class 4 Is this a current diagnosis for this admission?: Yes (2) CAD (coronary artery disease) Qualifiers: Coronary Disease-Associated Artery/Lesion type: [place] artery [place] vs. transplanted heart: [place] heart Associated angina: without angina Qualified Code(s): I25.10 - Atherosclerotic heart disease of [place] coronary artery without angina pectoris Is this a current diagnosis for this admission?: Yes (3) COPD (chronic obstructive pulmonary disease) Qualifiers: COPD type: emphysema Emphysema type: panlobular Qualified Code(s): J43.1 - Panlobular emphysema Is this a current diagnosis for this admission?: Yes (4) Coronary artery disease Qualifiers: Coronary Disease-Associated Artery/Lesion type: unspecified vessel or lesion type [place] vs. transplanted heart: [place] heart Associated angina: angina presence unspecified Qualified Code(s): I25.10 - Atherosclerotic heart disease of [place] coronary artery without angina pectoris Is this a current diagnosis for this admission?: Yes (5) Essential hypertension Is this a current diagnosis for this admission?: Yes (6) Cardiac defibrillator in situ Is this a current diagnosis for this admission?: Yes - Notes Notes: Ventricular tachycardia: This was noted to be nonsustained. Recommend maintaining electrolytes within normal limits. Will add Ranexa to the regimen. Acute on chronic systolic plus diastolic CHF: Patient seems to have end-stage CHF with loss of muscle mass, class IV symptoms. Patient declines to pursue invasive approach at this point. At this point recommend restarting entresto therapy continuing with carvedilol therapy, consider adding spironolactone/ eplerenone therapy. Continue with diuretic therapy for symptomatic relief. Consider adding digoxin. Coronary artery disease: Currently stable. Will add Ranexa to the regimen. This may help with V. tach and also diastolic function. COPD: Continue oxygen replacement. Hypertension: Currently blood pressure on the low side. Cardiac defibrillator in situ: Discussed with patient that he could be considered for upgrade to biventricular pacemaker defibrillator. He does not want to explore this option at this point. Patient being seen by hospice and arrangements are being made for him to be discharged in hospice care. - Time Time Spent: 30 to 50 Minutes - CODE STATUS was discussed, patient remains full code. Surrogate decision-maker unchanged. Multiple medical problems were addressed. More than 50% of the time spent coordinating care, discussing management plans with involved caregivers. Management plans discussed with involved personnels. Medical decision making was of moderate to high complexity , patient's has multiple comorbidities. Medications reviewed and adjusted accordingly: Yes
--- NOTE | 2017-08-18 10:10 | PDOC PROGRESS REPORT ---
Subjective Progress Note for:: 08/18/17 Subjective:: Patient claims to be doing about the same. He claims that he is expecting to be discharged today with hospice help being arranged. His telemetry strips shows no recurrence of ventricular tachyarrhythmias. Today I have optimized patient medical regimen. Reason For Visit: CHF EXACERBATION Physical Exam Vital Signs: Temp Pulse Resp BP Pulse Ox 97.5 F 71 19 97/65 L 94 08/18/17 08:09 08/18/17 08:09 08/18/17 08:09 08/18/17 08:09 08/18/17 08:09 Intake & Output 08/17/17 08/18/17 08/19/17 06:59 06:59 06:59 Intake Total 771 1320 Output Total 1000 1100 Balance -229 220 Weight 88.6 kg 88.6 kg Exam: GENERAL: well-nourished and in no acute distress. Alert and oriented x3 HEAD: Atraumatic, normocephalic. EYES: Pupils equal round and reactive to light, extraocular movements intact, sclera anicteric, conjunctiva are normal. ENT: TMs normal, nares patent, oropharynx clear without exudates. Moist mucous membranes. No oral ulcerations or bleeding gums noted NECK: supple without lymphadenopathy. Trachea is central. No cervical or axillary lymphadenopathy noted. Carotids are 2+, JVD 8 cm LUNGS: Respiration seems nonlabored, no significant accessory muscle action noted. Breath sounds clear to auscultation bilaterally and equal noted. No wheezes rales or rhonchi noted. No significant dullness noted on percussion. CHEST: Palpation of the chest wall shows no significant chest wall tenderness. No other significant abnormalities noted. 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 ABDOMEN: Soft, no significant tenderness appreciated, normoactive bowel sounds. No guarding, no rebound. No rigidity noted . No masses appreciated. EXTREMITIES: Pedal pulses are 1-2+, no calf tenderness noted. No clubbing or cyanosis. 1+ pedal edema noted NEUROLOGICAL: Focused neurological exam showed no significant neurologic deficit. Normal speech, no focal weakness appreciated. PSYCH: Normal mood, normal affect. Judgment and insight within normal limits. SKIN: No significant ecchymosis, skin is noted to be warm. MUSCULOSKELETAL EXAM: No significant acute joint swelling noted. Results Laboratory Results: 08/17/17 04:38 08/17/17 04:38 08/13/17 08/13/17 08/15/17 05:27 11:08 05:48 Troponin I 0.047 0.040 NT-Pro-B Natriuret Pep 6460 H EKG Comments: Shows sinus rhythm with bundle branch block pattern. No recurrence of ventricular tachyarrhythmias Impressions: Chest X-Ray 08/15/17 00:00 IMPRESSION: Fluid overload or congestive failure superimposed on obstructive lung disease. Interstitial edema with trace right pleural effusion similar compared to 08/12/2017 Assessment & Plan - Diagnosis (1) Acute on chronic combined systolic and diastolic CHF, NYHA class 4 Is this a current diagnosis for this admission?: Yes (2) CAD (coronary artery disease) Qualifiers: Coronary Disease-Associated Artery/Lesion type: [place] artery [place] vs. transplanted heart: [place] heart Associated angina: without angina Qualified Code(s): I25.10 - Atherosclerotic heart disease of [place] coronary artery without angina pectoris Is this a current diagnosis for this admission?: Yes (3) COPD (chronic obstructive pulmonary disease) Qualifiers: COPD type: emphysema Emphysema type: panlobular Qualified Code(s): J43.1 - Panlobular emphysema Is this a current diagnosis for this admission?: Yes (4) Coronary artery disease Qualifiers: Coronary Disease-Associated Artery/Lesion type: unspecified vessel or lesion type [place] vs. transplanted heart: [place] heart Associated angina: angina presence unspecified Qualified Code(s): I25.10 - Atherosclerotic heart disease of [place] coronary artery without angina pectoris Is this a current diagnosis for this admission?: Yes (5) Essential hypertension Is this a current diagnosis for this admission?: Yes (6) Cardiac defibrillator in situ Is this a current diagnosis for this admission?: Yes - Notes Notes: Ventricular tachycardia: This was noted to be nonsustained. Recommend maintaining electrolytes within normal limits. Will add Ranexa to the regimen. Acute on chronic systolic plus diastolic CHF: Patient seems to have end-stage CHF with loss of muscle mass, class IV symptoms. Patient declines to pursue invasive approach at this point. Restarted entresto therapy continuing with carvedilol therapy, consider adding spironolactone/eplerenone therapy. Continue with diuretic therapy for symptomatic relief. Added digoxin. Added Ranexa. Coronary artery disease: Currently stable. Will add Ranexa to the regimen. This may help with V. tach and also diastolic function. COPD: Continue oxygen replacement. Hypertension: Currently blood pressure on the low side. Cardiac defibrillator in situ: Discussed with patient that he could be considered for upgrade to biventricular pacemaker defibrillator. He does not want to explore this option at this point. Patient being seen by hospice and arrangements are being made for him to be discharged in hospice care - Time Time with patient: Greater than 35 minutes - CODE STATUS was discussed, patient remains full code. Surrogate decision-maker unchanged. Multiple medical problems were addressed. More than 50% of the time spent coordinating care, discussing management plans with involved caregivers. Management plans discussed with involved personnels. Medical decision making was of moderate to high complexity, patient's has multiple comorbidities. Medications reviewed and adjusted accordingly: Yes
[2017-08-18] MEDS: IPRATROPIUM/ALBUTEROL 0.5-2.5 MG/3 ML AMPUL NEB PRN ×2 (10:27→20:59)
[2017-08-18] MEDS ORDERED: DIGOXIN 0.25 MG TABLET PO ONE (11:00)
[2017-08-18] MEDS: RANOLAZINE 500 MG TAB.SR.12H PO SCH ×2 (11:45→21:32)
[2017-08-18] MEDS: MORPHINE SULFATE SR 30 MG TABLET PO SCH ×2 (11:46→23:40)
[2017-08-18] MEDS: SACUBITRIL/VALSARTAN 24 MG/26 MG TABLET PO SCH (11:46)
[2017-08-18] MEDS: ISOSORBIDE MONONITRATE 30 MG TAB.ER.24H PO SCH (11:48)
--- NOTE | 2017-08-18 15:37 | PDOC PROGRESS REPORT ---
Subjective Progress Note for:: 08/18/17 Subjective:: 56-year-old gentleman with end-stage ischemic cardiomyopathy AICD Left ventricular ejection fraction 26% on echocardiogram done February 2017 per patient TIA Right leg DVT post thrombectomy on Xarelto Chronic neck pain, opiate dependent End-stage COPD He presented to the hospital on August 12 with Weight loss of about 63 pounds in the past 45 days and reported being moved to [place] from [place] 2 months ago. He does not have any local outpatient physicians. The patient was diagnosed with acute on chronic combined systolic and diastolic CHF and started on intravenous Lasix. He is a full code. Cardiology consult appreciated. Not desiring any invasive procedures. Plan for discharge to home hospice tomorrow. Reason For Visit: CHF EXACERBATION Physical Exam Vital Signs: Temp Pulse Resp BP Pulse Ox 97.5 F 71 19 97/65 L 94 08/18/17 08:09 08/18/17 08:09 08/18/17 08:09 08/18/17 08:09 08/18/17 08:09 Intake & Output 08/17/17 08/18/17 08/19/17 06:59 06:59 06:59 Intake Total 771 1320 Output Total 1000 1100 Balance -229 220 Weight 88.6 kg 88.6 kg General appearance: PRESENT: no acute distress Eye exam: PRESENT: EOMI Mouth exam: PRESENT: neck supple Respiratory exam: PRESENT: crackles, symmetrical. ABSENT: wheezes Cardiovascular exam: PRESENT: RRR GI/Abdominal exam: PRESENT: normal bowel sounds, soft. ABSENT: tenderness Rectal exam: PRESENT: deferred Neurological exam: PRESENT: alert, awake, oriented to person, oriented to place , oriented to time, oriented to situation Results Laboratory Results: 08/17/17 04:38 08/17/17 04:38 08/13/17 08/13/17 08/15/17 05:27 11:08 05:48 Troponin I 0.047 0.040 NT-Pro-B Natriuret Pep 6460 H Impressions: Chest X-Ray 08/15/17 00:00 IMPRESSION: Fluid overload or congestive failure superimposed on obstructive lung disease. Interstitial edema with trace right pleural effusion similar compared to 08/12/2017 Assessment & Plan - Diagnosis (1) Acute on chronic combined systolic and diastolic CHF, NYHA class 4 Is this a current diagnosis for this admission?: Yes Plan: Improving, continue current medications. Plan for home hospice. (3) CAD (coronary artery disease) Qualifiers: Coronary Disease-Associated Artery/Lesion type: [place] artery [place] vs. transplanted heart: [place] heart Associated angina: without angina Qualified Code(s): I25.10 - Atherosclerotic heart disease of [place] coronary artery without angina pectoris Is this a current diagnosis for this admission?: Yes Plan: Stable. As above. (4) Chronic pain syndrome Is this a current diagnosis for this admission?: Yes (5) Elevated troponin Is this a current diagnosis for this admission?: Yes Plan: Very minimal No evidence of acute coronary syndrome. (6) End stage chronic obstructive pulmonary disease Is this a current diagnosis for this admission?: Yes Plan: Continue inhalers and supplemental oxygen. (7) Essential hypertension Is this a current diagnosis for this admission?: Yes Plan: Continue current medications. (8) Pulmonary hypertension Is this a current diagnosis for this admission?: Yes - Time Time Spent with patient: 25-34 minutes - Plan Summary Plan Summary: Plan for discharge to home hospice tomorrow.
[2017-08-18] MEDS: TAMSULOSIN HCL 0.4 MG CAP.SR.24H PO SCH (17:07)
[2017-08-18] MEDS: RIVAROXABAN 10 MG TABLET PO SCH (17:08)
[2017-08-18] MEDS: ATORVASTATIN CALCIUM 80 MG TABLET PO SCH (21:32)
[2017-08-19] MEDS: OXYCODONE HCL IR 5 MG TABLET PO PRN ×2 (02:31→15:02)
[2017-08-19] MEDS ORDERED: PANTOPRAZOLE SODIUM 40 MG VIAL IV SCH (06:00)
[2017-08-19] MEDS: GABAPENTIN 300 MG CAPSULE PO SCH ×2 (06:32→15:01)
[2017-08-19] MEDS: LANSOPRAZOLE 30 MG TAB.RAP.DR PO SCH (06:32)
[2017-08-19] MEDS: CYCLOBENZAPRINE HCL 10 MG TABLET PO SCH ×2 (06:32→15:05)
[2017-08-19] MEDS ORDERED: DIGOXIN 0.125 MG TABLET PO SCH (10:00)
[2017-08-19] MEDS: CARVEDILOL 6.25 MG TABLET PO SCH (11:23)
[2017-08-19] MEDS: CLOPIDOGREL BISULFATE 75 MG TABLET PO SCH (11:24)
[2017-08-19] MEDS: MORPHINE SULFATE SR 30 MG TABLET PO SCH (11:24)
[2017-08-19] MEDS: RANOLAZINE 500 MG TAB.SR.12H PO SCH (11:25)
[2017-08-19] MEDS: OLANZAPINE 2.5 MG TABLET PO SCH (11:25)
[2017-08-19] MEDS: ASPIRIN 81 MG TABLET, ENT COATED PO SCH (11:26)
[2017-08-19] MEDS: MIDODRINE HCL 5 MG TABLET PO SCH ×2 (11:26→15:04)
[2017-08-19] MEDS: POLYETHYLENE GLYCOL 3350 POWDER 17 GM/1 PACKET PO SCH (11:29)
[2017-08-19] MEDS: LACTULOSE SYRUP 20 GM/30 ML UDCUP PO SCH (11:29)
[2017-08-19] MEDS: TIOTROPIUM BROMIDE DPI 5 CAP/KIT (18 MCG/CAP) IH SCH (11:38)
[2017-08-19] MEDS: ISOSORBIDE MONONITRATE 30 MG TAB.ER.24H PO SCH (11:38)
[2017-08-19] MEDS: SACUBITRIL/VALSARTAN 24 MG/26 MG TABLET PO SCH (11:38)
[2017-08-19] MEDS: FLUTICASONE/SALMETEROL DISKUS 250-50 MCG/DOSE IH SCH (11:39)
[2017-08-19] MEDS: FUROSEMIDE 20 MG TABLET PO SCH (11:42)
--- NOTE | 2017-08-19 13:08 | PDOC PROGRESS REPORT ---
Subjective Progress Note for:: 08/19/17 Subjective:: Patient claims to be doing better. In fact better. He claims that he is expecting to be discharged today with hospice help being arranged. His telemetry strips shows no recurrence of ventricular tachyarrhythmias. Yesterday optimized patient medical regimen. Today patient's had a lot of questions about medications and further care plan. She had questions about why gabapentin was being used. I basically told her that I did not know but it is used for pain management and restless leg syndrome. Patient told me that patient does not have restless leg syndrome. She also had concern about plan of care. Patient showed me a list of medication that he takes chronically. It seems patient is on a very good regimen which includes both entresto and carvedilol. She was asked to continue these. I would recommend that patient also continues Ranexa which was used for nonsustained ventricular tachycardia and may also help diastolic function thereby reducing shortness of breath. Reason For Visit: CHF EXACERBATION Physical Exam Vital Signs: Temp Pulse Resp BP Pulse Ox 97.9 F 93 16 91/58 L 97 08/19/17 07:55 08/19/17 12:36 08/19/17 12:36 08/19/17 12:36 08/19/17 12:36 Intake & Output 08/18/17 08/19/17 08/20/17 06:59 06:59 06:59 Intake Total 1320 1734 Output Total 1100 2270 Balance 220 -536 Weight 88.6 kg 92.3 kg Exam: GENERAL: well-nourished and in no acute distress. Alert and oriented x3 HEAD: Atraumatic, normocephalic. EYES: Pupils equal round and reactive to light, extraocular movements intact, sclera anicteric, conjunctiva are normal. ENT: TMs normal, nares patent, oropharynx clear without exudates. Moist mucous membranes. No oral ulcerations or bleeding gums noted NECK: supple without lymphadenopathy. Trachea is central. No cervical or axillary lymphadenopathy noted. Carotids are 2+, JVD WNL LUNGS: Respiration seems nonlabored, no significant accessory muscle action noted. Breath sounds clear to auscultation bilaterally and equal noted. No wheezes rales or rhonchi noted. No significant dullness noted on percussion. CHEST: Palpation of the chest wall shows no significant chest wall tenderness. No other significant abnormalities noted. Defibrillator noted left-sided chest. HEART: [place] LARD TUB WASHER, No PSH, 1/6 TITA aortic area, 1/6 malagon systolic murmur mitral area, no rubs, no gallops. ABDOMEN: Soft, no significant tenderness appreciated, normoactive bowel sounds. No guarding, no rebound. No rigidity noted . No masses appreciated. EXTREMITIES: Pedal pulses are 1-2+, no calf tenderness noted. No clubbing or cyanosis.trace to 1+ pedal edema noted NEUROLOGICAL: Focused neurological exam showed no significant neurologic deficit. Normal speech, no focal weakness appreciated. PSYCH: Normal mood, normal affect. Judgment and insight within normal limits. SKIN: No significant ecchymosis, skin is noted to be warm. MUSCULOSKELETAL EXAM: No significant acute joint swelling noted. Results Laboratory Results: 08/17/17 04:38 08/17/17 04:38 08/13/17 08/13/17 08/15/17 05:27 11:08 05:48 Troponin I 0.047 0.040 NT-Pro-B Natriuret Pep 6460 H Impressions: Chest X-Ray 08/15/17 00:00 IMPRESSION: Fluid overload or congestive failure superimposed on obstructive lung disease. Interstitial edema with trace right pleural effusion similar compared to 08/12/2017 Assessment & Plan - Diagnosis (1) Acute on chronic combined systolic and diastolic CHF, NYHA class 4 Is this a current diagnosis for this admission?: Yes (2) CAD (coronary artery disease) Qualifiers: Coronary Disease-Associated Artery/Lesion type: jamul artery [place] vs. transplanted heart: jamul heart Associated angina: without angina Qualified Code(s): I25.10 - Atherosclerotic heart disease of jamul coronary artery without angina pectoris Is this a current diagnosis for this admission?: Yes (3) COPD (chronic obstructive pulmonary disease) Qualifiers: COPD type: emphysema Emphysema type: panlobular Qualified Code(s): J43.1 - Panlobular emphysema Is this a current diagnosis for this admission?: Yes (4) Coronary artery disease Qualifiers: Coronary Disease-Associated Artery/Lesion type: unspecified vessel or lesion type [place] vs. transplanted heart: jamul heart Associated angina: angina presence unspecified Qualified Code(s): I25.10 - Atherosclerotic heart disease of jamul coronary artery without angina pectoris Is this a current diagnosis for this admission?: Yes (5) Essential hypertension Is this a current diagnosis for this admission?: Yes (6) Cardiac defibrillator in situ Is this a current diagnosis for this admission?: Yes - Notes Notes: Ventricular tachycardia: This was noted to be nonsustained. Recommend maintaining electrolytes within normal limits. Added Ranexa to the regimen. Recent report suggests that this may actually reduce cardiac dysrhythmias. Also might help with diastolic function. Acute on chronic systolic plus diastolic CHF: Patient seems to have end-stage CHF with loss of muscle mass, class IV symptoms. Patient declines to pursue invasive approach at this point. Patient restarted on entresto therapy, continuing with carvedilol therapy, consider adding spironolactone/eplerenone therapy. Continue with diuretic therapy for symptomatic relief. Added digoxin. Coronary artery disease: Currently stable. Added Ranexa to the regimen. This may help with V. tach and also diastolic function. COPD: Continue oxygen replacement. Hypertension: Currently blood pressure on the low side. Cardiac defibrillator in situ: Discussed with patient that he could be considered for upgrade to biventricular pacemaker defibrillator. He does not want to explore this option at this point. Patient being seen by hospice and arrangements are being made for him to be discharged in hospice care. Discussed with patient's that being on hospice and does not rule out other options. He can follow-up with me in the office while he is here in [place]. We can make other appropriate referrals if needed to optimize his cardiac care, further. - Time Time with patient: Greater than 35 minutes - CODE STATUS was discussed, patient remains full code. Surrogate decision-maker . Multiple medical problems were addressed. More than 50% of the time spent coordinating care, discussing management plans with involved caregivers. Management plans discussed with involved personnels. Medical decision making was of moderate to high complexity , patient's has multiple comorbidities. Medications reviewed and adjusted accordingly: Yes
--- NOTE | 2017-08-19 15:39 | PDOC DISCHARGE SUMMARY ---
General - Admit/Disc Date/PCP Admission Date/Primary Care Provider: 08/12/17 23:25 Discharge Date: 08/19/17 - Discharge Diagnosis (1) Acute on chronic combined systolic and diastolic CHF, NYHA class 4 Is this a current diagnosis for this admission?: Yes (3) CAD (coronary artery disease) Is this a current diagnosis for this admission?: Yes (4) Chronic pain syndrome Is this a current diagnosis for this admission?: Yes (5) Elevated troponin Is this a current diagnosis for this admission?: Yes (6) End stage chronic obstructive pulmonary disease Is this a current diagnosis for this admission?: Yes (7) Essential hypertension Is this a current diagnosis for this admission?: Yes (8) Pulmonary hypertension Is this a current diagnosis for this admission?: Yes - Additional Information Resuscitation Status: Full Code Discharge Diet: Cardiac Discharge Activity: Activity As Tolerated, Balance Activity w/Rest, Weigh Daily Prescriptions: Digoxin [Lanoxin 0.125 mg Tablet] 0.125 mg PO DAILY 15 Days #15 tablet Fluticasone/Salmeterol [Advair 250-50 Diskus 14 Dose/Diskus] 1 inh IH Q12 30 Days #1 inhaler Gabapentin [Neurontin 300 mg Capsule] 600 mg PO Q8 15 Days #45 capsule Isosorbide Mononitrate [Imdur 30 mg Tablet.er] 15 mg PO DAILY@1200 15 Days #15 tab.er.24h Midodrine HCl [Proamatine 5 mg Tablet] 10 mg PO TID 15 Days #45 tablet Ranolazine [Ranexa 500 mg Tab.sr] 500 mg PO Q12 30 Days #60 tab.sr.12h Home Medications: Albuterol Sulfate [Proair HFA Inhalation Aerosol 8.5 gm MDI] 2 puff IH Q4HP PRN 08/13/17 Aspirin [Aspirin EC] 81 mg PO DAILY 08/13/17 Atorvastatin Calcium [Lipitor 80 mg Tablet] 80 mg PO QHS 08/13/17 Carvedilol [Coreg 6.25 mg Tablet] 6.25 mg PO Q12 08/13/17 Clopidogrel Bisulfate [Plavix 75 mg Tablet] 75 mg PO DAILY 08/13/17 Cyclobenzaprine HCl [Flexeril 10 mg Tablet] 10 mg PO Q12 08/13/17 Linaclotide [Linzess 145 Mcg Capsule] 145 mcg PO QHS 08/13/17 Morphine Sulfate [Morphine Sulfate ER] 60 mg PO Q12 08/13/17 Oxycodone HCl [Roxicodone] 30 mg PO Q6 08/13/17 Rivaroxaban [Xarelto] 20 mg PO DAILY 08/13/17 Sacubitril/Valsartan [Entresto 24 mg-26 mg Tablet] 1 tab PO Q12 08/13/17 Sertraline HCl [Zoloft] 200 mg PO DAILY 08/13/17 Tamsulosin HCl [Flomax 0.4 mg Cap.sr] 0.4 mg PO DAILY 08/13/17 Aspirin [Ecotrin 81 mg EC Tablet] 81 mg PO DAILY tabec 08/19/17 Atorvastatin Calcium [Lipitor 80 mg Tablet] 80 mg PO QHS #0 tablet 08/19/17 Carvedilol [Coreg 6.25 mg Tablet] 6.25 mg PO Q12 #0 tablet 08/19/17 Clopidogrel Bisulfate [Plavix 75 mg Tablet] 75 mg PO DAILY tablet 08/19/17 Digoxin [Lanoxin 0.125 mg Tablet] 0.125 mg PO DAILY 15 Days #15 tablet 08/19/17 Fluticasone/Salmeterol [Advair 250-50 Diskus 14 Dose/Diskus] 1 inh IH Q12 30 Days #1 inhaler 08/19/17 Furosemide [Lasix 20 mg Tablet] 20 mg PO BID tablet 08/19/17 Gabapentin [Neurontin 300 mg Capsule] 600 mg PO Q8 15 Days #45 capsule 08/19/17 Isosorbide Mononitrate [Imdur 30 mg Tablet.er] 15 mg PO DAILY@1200 15 Days #15 tab.er.24h 08/19/17 Midodrine HCl [Proamatine 5 mg Tablet] 10 mg PO TID 15 Days #45 tablet 08/19/17 Morphine Sulfate [Ms-Contin Sr 30 mg Tablet] 60 mg PO Q12@1100,2300 tablet.sa 08/19/17 Ranolazine [Ranexa 500 mg Tab.sr] 500 mg PO Q12 30 Days #60 tab.sr.12h 08/19/17 Rivaroxaban [Xarelto 10 mg Tablet] 20 mg PO WSUPPER tablet 08/19/17 Sacubitril/Valsartan [Entresto 24 mg/26 mg Tablet] 1 tab PO DAILY@1200 tablet 08/19/17 Tamsulosin HCl [Flomax 0.4 mg Cap.sr] 0.4 mg PO PCSUPPER cap.sr.24h 08/19/17 Tiotropium Bruce [Spiriva Handihaler 5 Cap/Kit (18 Mcg/Cap)] 1 cap IH DAILY kit 08/19/17 History of Present Illness History of Present Illness: 56-year-old gentleman with end-stage ischemic cardiomyopathy AICD Left ventricular ejection fraction 26% on echocardiogram done February 2017 per patient TIA Right leg DVT post thrombectomy on Xarelto Chronic neck pain, opiate dependent End-stage COPD He presented to the hospital on August 12 with Weight loss of about 63 pounds in the past 45 days and reported being moved to [place] from [place] 2 months ago. He does not have any local outpatient physicians. The patient was diagnosed with acute on chronic combined systolic and diastolic CHF and started on intravenous Lasix. He is a full code. Cardiology was consulted Not desiring any invasive procedures. He was seen by palliative care and hospice services opted for home hospice. Hospital Course Hospital Course: Follow up PCP in 1 week Establish care with Popcorn Machine Operator Dr. Landeros [facility] in 1 week as outpatient. Patient wants to go home on hospice but wishes to be a full code and placed on life support for a maximum of 8 days if needed in order to give his family a chance to come and say their goodbyes. Check Digoxin level and BMP and Magnesium and CBC on 08/26/17- results to PCP and Cardiology. CHF instructions. Physical Exam Vital Signs: Temp Pulse Resp BP Pulse Ox 97.9 F 93 16 91/58 L 97 08/19/17 07:55 08/19/17 12:36 08/19/17 12:36 08/19/17 12:36 08/19/17 12:36 Intake & Output 08/18/17 08/19/17 08/20/17 06:59 06:59 06:59 Intake Total 1320 1734 354 Output Total 1100 2270 Balance 220 -536 354 Weight 88.6 kg 92.3 kg Ear exam: PRESENT: normal external ear exam Neck exam: ABSENT: tracheal deviation Respiratory exam: PRESENT: symmetrical, unlabored Cardiovascular exam: PRESENT: RRR GI/Abdominal exam: PRESENT: soft. ABSENT: tenderness Results Laboratory Results: 08/17/17 04:38 08/17/17 04:38 08/13/17 08/13/17 08/15/17 05:27 11:08 05:48 Troponin I 0.047 0.040 NT-Pro-B Natriuret Pep 6460 H Impressions: Chest X-Ray 08/15/17 00:00 IMPRESSION: Fluid overload or congestive failure superimposed on obstructive lung disease. Interstitial edema with trace right pleural effusion similar compared to 08/12/2017 Qualifiers - * PATEINT BEING DISCHARGED WITH ANY OF THE FOLLOWING DIAGNOSIS?: No
[2017-08-19 16:18] VITALS: BP 92/65
== END 2017-08-19 17:10 | disposition hospice, home (50) | DRG 292 ==
LOC: ER 15:40 → EH 23:25 → 4N 08-13 00:56 → 3W 08-15 09:29
PROVIDERS: ADMIT Internal Medicine Geriatric Medicine; ATTEND Internal Medicine Geriatric Medicine
PROC: 3E0F73Z Introduction of Anti-inflammatory into Respiratory Tract, Via Natural or Artificial Opening (ICD-10-PCS; 2017-08-15)
PROC: 5A09457 Assistance with Respiratory Ventilation, 24-96 Consecutive Hours, Continuous Positive Airway Pressure (ICD-10-PCS; principal; 2017-08-16)
DX: I11.0 Hypertensive heart disease with heart failure (principal); I47.2 Ventricular tachycardia; I50.43 Acute on chronic combined systolic (congestive) and diastolic (congestive) heart failure; I25.10 Atherosclerotic heart disease of native coronary artery without angina pectoris; Z51.5 Encounter for palliative care; G89.4 Chronic pain syndrome; I27.20 Pulmonary hypertension, unspecified; I25.5 Ischemic cardiomyopathy; J43.1 Panlobular emphysema; I73.9 Peripheral vascular disease, unspecified; M19.90 Unspecified osteoarthritis, unspecified site; F32.9 Major depressive disorder, single episode, unspecified; I44.7 Left bundle-branch block, unspecified; R63.4 Abnormal weight loss; F41.9 Anxiety disorder, unspecified; M54.2 Cervicalgia; D64.9 Anemia, unspecified; I25.2 Old myocardial infarction; Z79.82 Long term (current) use of aspirin; Z79.899 Other long term (current) drug therapy; Z95.810 Presence of automatic (implantable) cardiac defibrillator; Z86.718 Personal history of other venous thrombosis and embolism; Z79.01 Long term (current) use of anticoagulants; Z79.891 Long term (current) use of opiate analgesic; Z86.73 Personal history of transient ischemic attack (TIA), and cerebral infarction without residual deficits; Z95.1 Presence of aortocoronary bypass graft; Z95.5 Presence of coronary angioplasty implant and graft; Z96.659 Presence of unspecified artificial knee joint; Z87.891 Personal history of nicotine dependence; Z88.8 Allergy status to other drugs, medicaments and biological substances; Z88.0 Allergy status to penicillin; Z91.013 Allergy to seafood; Z82.49 Family history of ischemic heart disease and other diseases of the circulatory system; Z80.0 Family history of malignant neoplasm of digestive organs
CPT/HCPCS: 36415; 36600; 71045; 71046; 80048; 80053; 82803; 82962; 83735; 83880; 84484; 85025; 85027; 93005; 93010; 93306; 94640; 94660; 96374; 99285; J1940; J2060; J2270; J2550; J2920; J3475; J3490; J7620; S0164

== ENCOUNTER 2017-11-03 01:57 | Inpatient (IN) | payer MEDICARE, OTHER ==
[2017-11-03] MEDS ORDERED: DEXTROSE 50%-WATER 25 GM/50 ML DISP.SYRIN IV ONE ×3 (02:17→03:33)
--- NOTE | 2017-11-03 02:30 | ER Document Report ---
ED General <IGNACIO SEWELL - Last Filed: 11/03/17 03:06> - General TRAVEL OUTSIDE OF THE [place] IN LAST 30 DAYS: No <SHIRA BROWN - Last Filed: 11/03/17 07:21> - General Stated Complaint: ALTERED MENTAL STATUS Time Seen by Provider: 11/03/17 02:18 Notes: Patient is a 56-year-old male who comes by EMS for chief complaint of altered mental status. at bedside, states that patient has been confused and unable to answer questions along with groaning and jerking for the past 5 hours. Patient alert and conversational before that per . Patient with complicated medical history including end-stage ischemic cardiomyopathy, CHF, CAD, has had 6 MIs, AICD, DVTs, and at one point was on heart transplant list. He has COPD. He is on Plavix and Xarelto. He is on a dobutamine pump. He is also on Milrinone. EMS reports that his initial blood glucose was in the 60s, given 15 g at that time, rechecked at bedside and found to be in the 40s. No vomiting, no fever, no fall/injury reported. also states that he was diagnosed with "bleeding and a throat infection" is on a combination suspension for treatment of this. He has been on this for a few days. (SHIRA BROWN) - Related Data Allergies/Adverse Reactions: iodine Allergy (Unknown, Verified 08/14/17 15:46) Penicillins Allergy (Verified 08/13/17 04:14) Anaphylaxis shellfish derived Allergy (Verified 08/13/17 04:15) Anaphylaxis Past Medical History - General Information source: Relative, Emergency Med Personnel - Social History Smoking Status: Former Smoker Frequency of alcohol use: None Drug Abuse: None Lives with: Family Family History: CAD - Past Medical History Cardiac Medical History: Reports: Hx Congestive Heart Failure - ICMP, Hx Coronary Artery Disease - post CABG x2, Hx DVT, Hx Heart Attack - x6, Hx Hypertension, Hx Peripheral Vascular Disease - DVT right post thrombectomy. Pulmonary Medical History: Reports: Hx COPD - End stage lung disease. Renal/ Medical History: Denies: Hx Peritoneal Dialysis Musculoskeltal Medical History: Reports Hx Arthritis, Reports Hx Muscle Weakness Psychiatric Medical History: Reports: Hx Anxiety, Hx Depression Past Surgical History: Reports: Hx Cardiac Catheterization, Hx Cardiac Surgery, Hx Coronary Artery Bypass Graft - x2; AICD/PPM, Hx Open Heart Surgery - CABG EF 26%, Hx Orthopedic Surgery - sympathetic nerve release; b/l shoulders and hand sx.psoas ligament release, Hx Vascular Surgery - Immunizations Hx Pneumococcal Vaccination: 05/25/16 <SHIRA BROWN - Last Filed: 11/03/17 07:21> Review of Systems - Review of Systems Constitutional: See HPI EENT: No symptoms reported Cardiovascular: See HPI Respiratory: No symptoms reported Gastrointestinal: No symptoms reported Genitourinary: No symptoms reported Male Genitourinary: No symptoms reported Musculoskeletal: No symptoms reported Skin: No symptoms reported Hematologic/Lymphatic: No symptoms reported Neurological/Psychological: See HPI <SHIRA BROWN - Last Filed: 11/03/17 07:21> Physical Exam - General General appearance: Other - Patient tachypnea, looking around the room intermittently, appears uncomfortable - HEENT Head: Normocephalic, Atraumatic Eyes: Normal Conjunctiva: Normal Eyelashes: Normal Pupils: PERRL Mucous membranes: Dry Pharynx: Blood in hypopharynx - Dried blood and hypopharynx, no active bleeding noted, no swelling, erythema, exudate noted, no airway compromise Neck: Normal - Respiratory Respiratory status: Tachypnea Breath sounds: No: Decreased air movement, Wheezing Chest palpation: Other - Central line in place with pump - Cardiovascular Rhythm: Regular Heart sounds: Normal auscultation, S1 appreciated, S2 appreciated - Abdominal Inspection: Normal, Other - Old midline vertical scar Tenderness: Nontender. No: Tender, Guarding - Back Back: Normal, Nontender - Extremities General upper extremity: Normal inspection General lower extremity: Other - Bandages in place in the lower extremity, very dry skin, normal distal pulses - Neurological Karol Coma Scale Eye Opening: To Pain Karol Coma Scale Verbal: Incomprehensible Karol Coma Scale Motor: [place] Coma Scale Total: 10 - Skin Skin Moisture: Dry Skin Color: Normal <SHIRA BROWN - Last Filed: 11/03/17 07:21> - Vital signs Vitals: Resp 37 H 11/03/17 02:11 Course - Laboratory Result Diagrams: 11/03/17 02:19 11/03/17 02:19 <IGNACIO SEWELL - Last Filed: 11/03/17 03:06> - Laboratory Result Diagrams: 11/03/17 02:19 11/03/17 02:19 <SHIRA BROWN - Last Filed: 11/03/17 07:21> - Re-evaluation Re-evalutation: 11/03/17 03:06 Patient initially seen by Shira LANIER. Patient is a 66-year-old male with a history of congestive heart failure that is end-stage she was taking milrinone as well as on a dobutamine pump. He was supposed to eventually get an LVAD and went to [facility] for evaluation of this but the patient himself decided against it was placed on dobutamine drip. His sales product manager is Dr. Landeros at [facility]. Patient has not been eating well the last 2 days. He does currently have some form of throat infection for which she is on antibiotics for. He is currently on Xarelto. He has not had any fevers at home. Approximately 5 hours prior to arrival he started become confused and his altered mental status has progressed. When he arrives blood sugar was in the 40s. He received dextrose his blood sugars now 99 but he still poorly responsive. At bedside he has almost what appears to be crew small type respirations. He only responds to painful stimuli. Keep his eyes closed. He does have a little dry blood in his mouth. Pharyngeal exam shows very mild erythema without any swelling or evidence of abscess. He has or had a chest x- ray which shows some pulmonary vascular congestion. His abdomen is soft and not overtly distended. Does not appear to have any pain when I push on his abdomen. Remainder of lab work is still pending. CT scan head was performed was negative. Will place a Chávez catheter in with record temp monitoring. Will wait for the rest of his labs to return. (IGNACIO SEWELL) Patient hypotensive with systolic in the 80s and 90s, per this is normal for him with his ischemic cardiomyopathy. Blood glucose checked and is in the 40s, gave 1 amp of dextrose, CAT scan of the head performed, workup pending. Discussed with Dr. Sewell. Patient remains responsive but even though he will follow directions such as trying to stick out his tongue he will not answer me, he does still respond to pain, he does arouse occasionally on his own. GCS is 10 at this time. Patient is a full code. CT of the head with no intracranial hemorrhage or other acute normality. Chest x-ray shows some vascular congestion, no infiltrate. 11/03/17 03:30 Venous blood gas showing metabolic acidosis with pH of 7.18 and low bicarbonate. Chemistry shows CO2 of 10, potassium 5.8, creatinine 2.42, LFTs in the 200s, sodium of 135, elevated bilirubin. Has been placed on D5 half- normal continuous, unable to give bolus because of patient's ischemic cardiomyopathy. Giving additional dextrose amp, giving bicarbonate bolus. Updated Dr. Sewell. 11/03/17 03:[address] Gann, internal medicine, he recommends transfer because we do not have an supervisor beam department here in because of concerns about not being able to manage his dobutamine pump. 11/03/17 04:[address] Turcios, cardiology, recommendation at this time is that with patient doing so poorly on dobutamine pump he will either need LVAD or the alternative would be comfort measures. Does not have any recommendations for what he can be offered at [facility]. I discussed this with family at bedside, they currently are not sure if they want to go to [facility] or have him placed on comfort measures. 11/03/17 I spoke with patient's mother on the phone, I spoke with daughter, I spoke with at bedside. They report the patient's wishes were thought he would not be placed on an LVAD, realistically at this point there is not a good prognosis even if he went to [facility] for the LVAD to be placed, patient is very uncomfortable at this time and appears agitated, decision was made for patient to proceed with comfort care because of his end-stage cardiomyopathy and severe metabolic acidosis with metabolic encephalopathy. Discussed with Dr. Sewell. 11/03/17 07:[address] Tse. Patient will be admitted to the hospital for comfort measures. (SHIRA BROWN) - Vital Signs Vital signs: Temp Pulse Resp BP Pulse Ox 34 H 151/78 H 97 11/03/17 04:00 11/03/17 03:00 11/03/17 04:00 - Laboratory Laboratory results interpreted by ky: 11/03/17 11/03/17 11/03/17 02:15 02:19 02:19 RBC 3.50 L Hgb 10.4 L Hct 33.0 L MCHC 31.6 L RDW 22.5 H Plt Count 138 L Seg Neuts % (Manual) 80 H Band Neutrophils % 1 L Lymphocytes % (Manual) 12 L Abs Neuts (Manual) 0.0 L Abs Lymphs (Manual) 0.0 L Abs Monocytes (Manual) 0.0 L VBG pH VBG pCO2 VBG HCO3 Sodium 135.2 L Potassium 5.8 H Chloride 92 L Carbon Dioxide 11 L Anion Gap 32 H BUN 57 H Creatinine 2.42 H Est GFR ( Amer) 34 L Est GFR (Non-Af Amer) 28 L Glucose 38 L* POC Glucose 48 L Lactic Acid Magnesium Total Bilirubin 7.0 H Direct Bilirubin 5.7 H AST 291 H ALT 419 H Alkaline Phosphatase 141 H Ammonia Creatine Kinase 483 H CK-MB (CK-2) Total Protein 8.6 H Urine Protein Urine Urobilinogen 11/03/17 11/03/17 11/03/17 02:19 02:19 02:45 RBC Hgb Hct MCHC RDW Plt Count Seg Neuts % (Manual) Band Neutrophils % Lymphocytes % (Manual) Abs Neuts (Manual) Abs Lymphs (Manual) Abs Monocytes (Manual) VBG pH 7.18 L* VBG pCO2 34.9 L VBG HCO3 12.8 L Sodium Potassium Chloride Carbon Dioxide Anion Gap BUN Creatinine Est GFR ( Amer) Est GFR (Non-Af Amer) Glucose POC Glucose Lactic Acid Magnesium 2.4 H Total Bilirubin Direct Bilirubin AST ALT Alkaline Phosphatase Ammonia Creatine Kinase CK-MB (CK-2) 6.99 H Total Protein Urine Protein Urine Urobilinogen 11/03/17 11/03/17 11/03/17 02:45 03:20 03:35 RBC Hgb Hct MCHC RDW Plt Count Seg Neuts % (Manual) Band Neutrophils % Lymphocytes % (Manual) Abs Neuts (Manual) Abs Lymphs (Manual) Abs Monocytes (Manual) VBG pH VBG pCO2 VBG HCO3 Sodium Potassium Chloride Carbon Dioxide Anion Gap BUN Creatinine Est GFR ( Amer) Est GFR (Non-Af Amer) Glucose POC Glucose Lactic Acid 17.0 H Magnesium Total Bilirubin Direct Bilirubin AST ALT Alkaline Phosphatase Ammonia < 8.7 L Creatine Kinase CK-MB (CK-2) Total Protein Urine Protein 100 H Urine Urobilinogen 4.0 H Discharge <IGNACIO SEWELL - Last Filed: 11/03/17 03:06> - Discharge Admitting Provider: Hospitalist Unit Admitted: Medical Floor <SHIRA BROWN - Last Filed: 11/03/17 07:21> - Discharge Clinical Impression: Metabolic encephalopathy, Multiple organ failure with heart failure, Comfort measures only status Cardiomyopathy Qualifiers: Cardiomyopathy type: ischemic Qualified Code(s): I25.5 - Ischemic cardiomyopathy Condition: Critical Disposition: ADMITTED INPATIENT Referrals: LOCALMD,NO [NO LOCAL MD] - Follow up as needed
--- NOTE | 2017-11-03 02:42 | RADIOLOGY REPORT (SQ) ---
EXAM DESCRIPTION: XR CHEST 1 VIEW COMPLETED DATE/TME: 11/03/2017 02:18 CLINICAL HISTORY: AMS COMPARISON: 08/15/2017 FINDINGS: Single frontal view of the chest. Left-sided pacemaker. Left IJ tunneled PICC. Cardiomegaly. Pulmonary vascular congestion without definite interstitial edema. No pneumothorax or large effusion. No lobar consolidation. No acute osseous abnormality. Upper abdominal soft tissues are unremarkable. IMPRESSION: 1. Cardiomegaly with pulmonary vascular congestion.
--- NOTE | 2017-11-03 02:43 | RADIOLOGY REPORT (SQ) ---
EXAM DESCRIPTION: CT HEAD WITHOUT IV CONTRAST COMPLETED DATE/TME: 11/03/2017 02:19 EXAM DESCRIPTION: CT of the head without contrast CLINICAL HISTORY: AMS COMPARISON: None available TECHNIQUE: Axial CT of the head obtained from the skull apex to the skull base without contrast. FINDINGS: No acute intracranial hemorrhage identified. No mass, mass effect, shift of the midline, abnormal extra-axial fluid collection or CT evidence of acute ischemic change identified. The ventricular system is unremarkable. No acute abnormalities of the supratentorial white matter, basal ganglia, cerebellum, or brainstem. Coastal thickening of the left frontal sinus. No skull fracture identified. Visualized orbits and globes are unremarkable. DLP: 1096.9 mGy-cm IMPRESSION: 1. No acute intracranial abnormality identified. This exam was performed according to our departmental dose-optimization program, which includes automated exposure control, adjustment of the mA and/or kV according to patient size and/or use of iterative reconstruction technique.
[2017-11-03 02:49] LABS: HEMOGLOBIN 10.4 g/dL (13.5-17.0); MEAN CORPUSCULAR HEMOGLOBIN 29.7 pg (27.0-33.4); MEAN CORPUSCULAR HGB CONC 31.6 g/dL (32.0-36.0); PLATELET COUNT 138 10^3/uL (150-450); RED CELL DISTRIBUTION WIDTH 22.5 % (11.5-14.0)
[2017-11-03 03:01] LABS: ALANINE AMINOTRANSFERASE 419 U/L (21-72); ALBUMIN 3.6 g/dL (3.5-5.0); ALKALINE PHOSPHATASE 141 U/L (38-126); ASPARTATE AMINO TRANSFERASE 291 U/L (17-59); BILIRUBIN,DIRECT 5.7 mg/dL (0.0-0.4); BLOOD UREA NITROGEN 57 mg/dL (7-20); CALCIUM 9.3 mg/dL (8.4-10.2); CREATINE KINASE 483 U/L (55-170); POTASSIUM 5.8 mmol/L (3.6-5.0); TOTAL PROTEIN 8.6 g/dL (6.3-8.2)
[2017-11-03 03:05] LABS: MEAN CORPUSCULAR VOLUME 94 fl (80-97)
[2017-11-03 03:06] LABS: CARBON DIOXIDE 11 mmol/L (22-30); CHLORIDE 92 mmol/L (98-107); SODIUM 135.2 mmol/L (137-145)
[2017-11-03 03:06] LABS: VENOUS BLOOD BASE EXCESS -14.5 mmol/L; VENOUS BLOOD HCO3 12.8 mmol/L (20-32); VENOUS BLOOD PCO2 34.9 mmHg (35-63)
[2017-11-03 03:09] LABS: BAND NEUTROPHILS % (MANUAL) 1 % (3-5); BASOPHILS % (MANUAL) 0 % (0-2); EOSINOPHILS % (MANUAL) 0 % (0-6); LYMPHOCYTES % (MANUAL) 12 % (13-45); MONOCYTES % (MANUAL) 7 % (3-13); NUCLEATED RED BLOOD CELLS 4 /100 WBC (0); SEGMENTED NEUTROPHILS % (MAN) 80 % (42-78); TOTAL CELLS COUNTED 100
[2017-11-03 03:12] LABS: VENOUS BLOOD PH 7.18 (7.30-7.42)
[2017-11-03 03:12] LABS: CREATINE KINASE MB 6.99 ng/mL (<4.55)
[2017-11-03 03:15] LABS: ANISOCYTOSIS 2+; HYPOCHROMASIA 1+; POIKILOCYTOSIS 1+; POLYCHROMASIA 1+
[2017-11-03 03:16] LABS: PLATELET COMMENT ADEQUATE; PLATELET LARGE PRESENT
[2017-11-03 03:17] LABS: WHITE BLOOD COUNT 8.7 10^3/uL (4.0-10.5)
[2017-11-03] MEDS ORDERED: DEXTROSE 5%-1/2 NORMAL SALINE 500 ML IV ONE (03:17)
[2017-11-03 03:24] LABS: TROPONIN I 0.07 ng/mL
[2017-11-03 03:25] LABS: ANION GAP 32 (5-19); GLUCOSE 38 mg/dL (75-110)
[2017-11-03] MEDS ORDERED: SODIUM BICARBONATE 8.4% INJ 50 MEQ/50 ML DISP.SYRIN IV ONE (03:28)
[2017-11-03 03:47] LABS: AMORPHOUS SEDIMENT,URINE TRACE /HPF; APPEARANCE,URINE SLIGHTLY-CLOUDY; BILIRUBIN,URINE NEGATIVE (NEGATIVE); COLOR,URINE AMBER; GLUCOSE, URINE NEGATIVE (NEGATIVE); KETONES,URINE NEGATIVE (NEGATIVE); LEUKOCYTE ESTERASE,URINE NEGATIVE (NEGATIVE); NITRITE,URINE NEGATIVE (NEGATIVE); PROTEIN,URINE 100 mg/dL (NEGATIVE); URINE SPECIFIC GRAVITY 1.012
[2017-11-03] MEDS ORDERED: DEXTROSE 5%-1/2 NORMAL SALINE 1,000 ML IV ONE (04:02)
[2017-11-03] MEDS ORDERED: FENTANYL CITRATE INJ/PF 100 MCG/2 ML AMPUL IV ONE (04:58)
[2017-11-03] MEDS ORDERED: LORAZEPAM INJ 2 MG/1 ML VIAL IV ONE (04:58)
[2017-11-03] MEDS ORDERED: FENTANYL CITRATE INJ/PF 100 MCG/2 ML AMPUL IV PRN (07:06)
[2017-11-03] MEDS: LORAZEPAM INJ 2 MG/1 ML VIAL IV PRN ×8 (07:19→23:58)
--- NOTE | 2017-11-03 07:37 | EKG REPORT ---
SEVERITY:- ABNORMAL ECG - ATRIAL FIBRILLATION LEFT BUNDLE BRANCH BLOCK : Confirmed by: Isaiah Pineda MD 03-Nov-2017 07:37:19
[2017-11-03] MEDS ORDERED: SCOPOLAMINE HYDROBROMIDE 1.5 MG PATCH.TD72 TD ONE (08:00)
[2017-11-03] MEDS ORDERED: DOBUTAMINE HCL/D5W 500 MG/250 ML RTUINJ IV PRN (08:25)
[2017-11-03] MEDS: FENTANYL CITRATE INJ/PF 100 MCG/2 ML AMPUL IV PRN ×7 (08:53→22:49)
--- NOTE | 2017-11-03 18:26 | PDOC H&P ---
History of Present Illness Admission Date/PCP: 11/03/17 07:35 Patient complains of: Confusion History of Present Illness: MARIN SCRUGGS JR is a 56 year old male With past medical history of severe ischemic cardiomyopathy on dobutamine infusion, history of 6 times CO, history of DVT, PVD and HTN. Presented to the emergency department with altered mental status accompanied by his and his daughter. The ER physician initially made arrangements for patient to be transferred to a tertiary care center, but family members very reasonably so agreed to comfort measures in an end-stage cardiomyopathy patient. Patient was very fatigued and weak and could not respond to any questions during examination. Had mildly labored breathing. Appeared very frail and fatigued. Discussion was made with the family regarding the ongoing dobutamine infusion. The family did not want to remove the infusion at present. Patient was made comfortable with scopolamine patch and fentanyl pushes. Currently awaiting bed placement to a medical floor, with comfort care goals. Patient not expected to survive transport out of the hospital once dobutamine is weaned. Discussed this with nursing. Past Medical History Cardiac Medical History: Reports: Congestive Heart Failure - ICMP, Coronary Artery Disease - post CABG x2, DVT, Myocardial Infarction - x6, Hypertension, Peripheral Vascular Disease - DVT right post thrombectomy. Pulmonary Medical History: Reports: Chronic Obstructive Pulmonary Disease (COPD ) - End stage lung disease. Musculoskeltal Medical History: Reports: Arthritis Psychiatric Medical History: Reports: Depression Past Surgical History Past Surgical History: Reports: Cardiac Catheterization, Coronary Artery Bypass Graft - x2; AICD/PPM, Orthopedic Surgery - sympathetic nerve release; b/l shoulders and hand sx.psoas ligament release, Vascular Surgery Social History Lives with: Family Smoking Status: Former Smoker Frequency of Alcohol Use: None Hx Recreational Drug Use: No Drugs: None Hx Prescription Drug Abuse: No Family History Family History: CAD Parental Family History Reviewed: Yes Children Family History Reviewed: No Sibling(s) Family History Reviewed.: No Medication/Allergy Home Medications: Albuterol Sulfate [Proair HFA Inhalation Aerosol 8.5 gm MDI] 2 puff IH Q4HP PRN 08/13/17 Aspirin [Aspirin EC] 81 mg PO DAILY 08/13/17 Atorvastatin Calcium [Lipitor 80 mg Tablet] 80 mg PO QHS 08/13/17 Carvedilol [Coreg 6.25 mg Tablet] 6.25 mg PO Q12 08/13/17 Clopidogrel Bisulfate [Plavix 75 mg Tablet] 75 mg PO DAILY 08/13/17 Cyclobenzaprine HCl [Flexeril 10 mg Tablet] 10 mg PO Q12 08/13/17 Linaclotide [Linzess 145 Mcg Capsule] 145 mcg PO QHS 08/13/17 Oxycodone HCl [Roxicodone] 30 mg PO Q6 08/13/17 Rivaroxaban [Xarelto] 20 mg PO DAILY 08/13/17 Sacubitril/Valsartan [Entresto 24 mg-26 mg Tablet] 1 tab PO Q12 08/13/17 Sertraline HCl [Zoloft] 200 mg PO DAILY 08/13/17 Tamsulosin HCl [Flomax 0.4 mg Cap.sr] 0.4 mg PO DAILY 08/13/17 Aspirin [Ecotrin 81 mg EC Tablet] 81 mg PO DAILY tabec 08/19/17 Atorvastatin Calcium [Lipitor 80 mg Tablet] 80 mg PO QHS #0 tablet 08/19/17 Carvedilol [Coreg 6.25 mg Tablet] 6.25 mg PO Q12 #0 tablet 08/19/17 Clopidogrel Bisulfate [Plavix 75 mg Tablet] 75 mg PO DAILY tablet 08/19/17 Digoxin [Lanoxin 0.125 mg Tablet] 0.125 mg PO DAILY 15 Days #15 tablet 08/19/17 Fluticasone/Salmeterol [Advair 250-50 Diskus 14 Dose/Diskus] 1 inh IH Q12 30 Days #1 inhaler 08/19/17 Furosemide [Lasix 20 mg Tablet] 20 mg PO BID tablet 08/19/17 Gabapentin [Neurontin 300 mg Capsule] 600 mg PO Q8 15 Days #45 capsule 08/19/17 Isosorbide Mononitrate [Imdur 30 mg Tablet.er] 15 mg PO DAILY@1200 15 Days #15 tab.er.24h 08/19/17 Midodrine HCl [Proamatine 5 mg Tablet] 10 mg PO TID 15 Days #45 tablet 08/19/17 Morphine Sulfate [Morphine Sulfate ER] 60 mg PO Q12 3 Days #6 tablet.er Morphine Sulfate [Ms-Contin Sr 30 mg Tablet] 60 mg PO Q12@1100,2300 tablet.sa 08/19/17 Oxycodone HCl [Oxy-Ir 5 mg Tablet] 30 mg PO Q4HP PRN 3 Days #12 tablet 08/19/17 Ranolazine [Ranexa 500 mg Tab.sr] 500 mg PO Q12 30 Days #60 tab.sr.12h 08/19/17 Rivaroxaban [Xarelto 10 mg Tablet] 20 mg PO WSUPPER tablet 08/19/17 Sacubitril/Valsartan [Entresto 24 mg/26 mg Tablet] 1 tab PO DAILY@1200 tablet 08/19/17 Tamsulosin HCl [Flomax 0.4 mg Cap.sr] 0.4 mg PO PCSUPPER cap.sr.24h 08/19/17 Tiotropium [place] [Spiriva Handihaler 5 Cap/Kit (18 Mcg/Cap)] 1 cap IH DAILY kit 08/19/17 Allergies/Adverse Reactions: iodine Allergy (Unknown, Verified 08/14/17 15:46) Penicillins Allergy (Verified 08/13/17 04:14) Anaphylaxis shellfish derived Allergy (Verified 08/13/17 04:15) Anaphylaxis Review of Systems Constitutional: PRESENT: fatigue, weakness. ABSENT: chills, fever(s) Nose, Mouth, and Throat: ABSENT: headache(s), mouth pain Cardiovascular: ABSENT: edema, orthropnea Gastrointestinal: ABSENT: constipation, diarrhea Genitourinary: ABSENT: dysuria Musculoskeletal: ABSENT: deformity Integumentary: ABSENT: lesions Neurological: PRESENT: confusion, weakness. ABSENT: focal weakness Psychiatric: PRESENT: depression. ABSENT: hallucinations Hematologic/Lymphatic: ABSENT: easy bruising Physical Exam Vital Signs: Temp Pulse Resp BP Pulse Ox 99.0 F 23 H 99/63 L 100 11/03/17 12:30 11/03/17 15:00 11/03/17 06:01 11/03/17 15:00 General appearance: PRESENT: severe distress. ABSENT: no acute distress Head exam: PRESENT: atraumatic, normocephalic Eye exam: ABSENT: periorbital swelling, scleral icterus Ear exam: PRESENT: normal external ear exam. ABSENT: drainage Mouth exam: PRESENT: moist, neck supple Neck exam: PRESENT: full ROM Respiratory exam: PRESENT: accessory muscle use. ABSENT: chest wall tenderness , rhonchi, unlabored Cardiovascular exam: PRESENT: RRR, +S1, +S2 Pulses: PRESENT: normal radial pulses, normal dorsalis pedis pul Vascular exam: PRESENT: normal capillary refill. ABSENT: pallor GI/Abdominal exam: PRESENT: soft. ABSENT: firm, rebound Extremities exam: ABSENT: calf tenderness, joint swelling Musculoskeletal exam: PRESENT: full ROM, normal inspection Neurological exam: PRESENT: altered, aphasic Focused psych exam: PRESENT: other - patient unresponsive to questions, lethargic Skin exam: PRESENT: cyanosis, dry. ABSENT: mottled Results Impressions: Chest X-Ray 11/03/17 02:18 IMPRESSION: 1. Cardiomegaly with pulmonary vascular congestion. Head CT 11/03/17 02:19 IMPRESSION: 1. No acute intracranial abnormality identified. This exam was performed according to our departmental dose-optimization program, which includes automated exposure control, adjustment of the mA and/or kV according to patient size and/or use of iterative reconstruction technique. Assessment & Plan - Diagnosis (1) Cardiomyopathy Qualifiers: Cardiomyopathy type: ischemic Qualified Code(s): I25.5 - Ischemic cardiomyopathy Is this a current diagnosis for this admission?: Yes Plan: This is end-stage ischemic cardiomyopathy, on dobutamine infusion support. Patient is currently failing this. This has been explained at length to his family members. Goal is comfort care during this hospitalization. Patient will be given access to IV opiate medications including fentanyl and morphine. Also giving patient scopolamine patch. (2) Acute on chronic combined systolic and diastolic CHF, NYHA class 4 Is this a current diagnosis for this admission?: Yes Plan: See plan above. (3) Comfort measures only status Is this a current diagnosis for this admission?: Yes Plan: Family has agreed to comfort measures only. Patient has an end-stage ischemic cardiomyopathy at present. Currently on dobutamine infusion. Stopping this infusion was discussed with the family, and they currently want to continue it. Patient is pain treated with IV fentanyl and IV morphine. Comfort measures to continue when patient goes to the medical floor. (4) Chronic pain syndrome Is this a current diagnosis for this admission?: Yes Plan: Continue pain medicine as needed. (5) Coronary artery disease Qualifiers: Coronary Disease-Associated Artery/Lesion type: unspecified vessel or lesion type [place] vs. transplanted heart: [place] heart Associated angina: angina presence unspecified Qualified Code(s): I25.10 - Atherosclerotic heart disease of [place] coronary artery without angina pectoris Is this a current diagnosis for this admission?: Yes Plan: see plan above (6) Essential hypertension Is this a current diagnosis for this admission?: Yes Plan: see plan above - Time Time Spent: 30 to 50 Minutes - Plan Summary Plan Summary: Comfort care as detailed above.
[2017-11-04] MEDS: FENTANYL CITRATE INJ/PF 100 MCG/2 ML AMPUL IV PRN ×14 (03:32→23:19)
[2017-11-04] MEDS: LORAZEPAM INJ 2 MG/1 ML VIAL IV PRN ×12 (07:51→23:19)
--- NOTE | 2017-11-04 14:33 | PDOC PROGRESS REPORT ---
Subjective Progress Note for:: 11/04/17 Subjective:: [employer], appears comfortable and resting. Family at bedside. No requests. Reason For Visit: COMFORT CARE FOR END STAGE CARDIOMYOPATHY Physical Exam Vital Signs: Temp Pulse Resp BP Pulse Ox 97.3 F 88 28 H 97/60 L 96 11/04/17 07:11 11/04/17 14:00 11/04/17 07:11 11/04/17 07:11 11/04/17 07:11 Intake & Output 11/03/17 11/04/17 11/05/17 06:59 06:59 06:59 Intake Total 0 Output Total 100 Balance -100 Weight 83.9 kg General appearance: PRESENT: no acute distress, other - Sleeping Additional comments: Did not examine patient as he is comfort measures only and was sleeping comfortably. Results Impressions: Chest X-Ray 11/03/17 02:18 IMPRESSION: 1. Cardiomegaly with pulmonary vascular congestion. Head CT 11/03/17 02:19 IMPRESSION: 1. No acute intracranial abnormality identified. This exam was performed according to our departmental dose-optimization program, which includes automated exposure control, adjustment of the mA and/or kV according to patient size and/or use of iterative reconstruction technique. Assessment & Plan - Diagnosis (1) Comfort measures only status Is this a current diagnosis for this admission?: Yes Plan: Has end stage heart failure. Made [employer] on 11/03. Previously on dobutamine infusion , now d/c-ed following discussion. Patient appears comfortable with IV fentanyl and IV morphine. (2) Acute on chronic combined systolic and diastolic CHF, NYHA class 4 Is this a current diagnosis for this admission?: Yes Plan: End-stage ischemic cardiomyopathy, previously on dobutamine infusion support. Now [employer] per above. (3) Chronic pain syndrome Is this a current diagnosis for this admission?: Yes Plan: Pain appears to be well controlled on current regimen. Will increase if needed. (4) Coronary artery disease Qualifiers: Coronary Disease-Associated Artery/Lesion type: unspecified vessel or lesion type [place] vs. transplanted heart: [place] heart Associated angina: angina presence unspecified Qualified Code(s): I25.10 - Atherosclerotic heart disease of [place] coronary artery without angina pectoris Is this a current diagnosis for this admission?: Yes Plan: Known history. NTD. - Time Time Spent with patient: Less than 15 minutes Anticipated discharge: Other - Comfort measures only.
[2017-11-05] MEDS: LORAZEPAM INJ 2 MG/1 ML VIAL IV PRN ×13 (00:15→22:13)
[2017-11-05] MEDS: FENTANYL CITRATE INJ/PF 100 MCG/2 ML AMPUL IV PRN ×10 (00:15→23:07)
[2017-11-05] MEDS ORDERED: MORPHINE SULFATE 10 MG/ML INJ IV ONE (04:00)
[2017-11-05] MEDS ORDERED: MORPHINE SULFATE 10 MG/ML INJ ONE (08:46)
[2017-11-05] MEDS ORDERED: ACETAMINOPHEN 650 MG SUPP.RECT PR ONE (09:15)
[2017-11-05] MEDS: MORPHINE SULFATE 10 MG/ML INJ IV PRN ×4 (12:00→22:13)
--- NOTE | 2017-11-05 13:25 | PDOC PROGRESS REPORT ---
Subjective Progress Note for:: 11/05/17 Subjective:: [employer], more labored breathing this morning. Increased pain and anxiety medications to ensure comfort. and patient's brother at bedside. Joanne's thinks he is more warm than usual and requesting temperature to be checked. Patient sleeping. Reason For Visit: COMFORT CARE FOR END STAGE CARDIOMYOPATHY Physical Exam Vital Signs: Temp Pulse Resp BP Pulse Ox 99.4 F 110 H 36 H 94/37 L 87 L 11/04/17 19:28 11/05/17 07:17 11/05/17 07:17 11/05/17 07:17 11/05/17 07:17 Intake & Output 11/04/17 11/05/17 11/06/17 06:59 06:59 06:59 Intake Total 0 40 0 Output Total 100 725 225 Balance -100 -225 -225 Weight 83.9 kg 83.4 kg General appearance: PRESENT: no acute distress, thin, other - Sleeping Mouth exam: PRESENT: dry mucosa Respiratory exam: PRESENT: tachypnea Cardiovascular exam: PRESENT: +S1, +S2, tachycardia GI/Abdominal exam: PRESENT: soft. ABSENT: tenderness Neurological exam: PRESENT: other - Did not assess Skin exam: PRESENT: dry Results Impressions: Chest X-Ray 11/03/17 02:18 IMPRESSION: 1. Cardiomegaly with pulmonary vascular congestion. Head CT 11/03/17 02:19 IMPRESSION: 1. No acute intracranial abnormality identified. This exam was performed according to our departmental dose-optimization program, which includes automated exposure control, adjustment of the mA and/or kV according to patient size and/or use of iterative reconstruction technique. Assessment & Plan - Diagnosis (1) Comfort measures only status Is this a current diagnosis for this admission?: Yes Plan: Has end stage heart failure. Made [employer] on 11/03. Previously on dobutamine infusion , now d/c-ed following discussion. - Due to increased respiratory rate increased IV fentanyl and IV ativan doses. Added IV morphine as well per family's request - Has tylenol ordered for fever - Scopolamine patch ordered for N/V (2) Acute on chronic combined systolic and diastolic CHF, NYHA class 4 Is this a current diagnosis for this admission?: Yes Plan: End-stage ischemic cardiomyopathy, previously on dobutamine infusion support. Now [employer] per above. (3) Chronic pain syndrome Is this a current diagnosis for this admission?: Yes Plan: Not evidently in more pain however thinks he is showing signs of more discomfort - Medications adjusted per above. Will closely monitor and increase if needed. (4) Coronary artery disease Qualifiers: Coronary Disease-Associated Artery/Lesion type: unspecified vessel or lesion type [place] vs. transplanted heart: [place] heart Associated angina: angina presence unspecified Qualified Code(s): I25.10 - Atherosclerotic heart disease of [place] coronary artery without angina pectoris Is this a current diagnosis for this admission?: Yes - Time Time Spent with patient: Less than 15 minutes Anticipated discharge: Other - [employer]
[2017-11-05] MEDS ORDERED: GUAIFENESIN/D-METHORPHAN (200-20 MG) SYRUP 10 ML PO PRN (18:04)
[2017-11-05 20:17] VITALS: BP 84/49
[2017-11-05] MEDS ORDERED: FLUTICASONE NASAL SPRAY 50 MCG/SPRY 120 SPRAY/16 GM NASL SCH (22:00)
[2017-11-06] MEDS: MORPHINE SULFATE 10 MG/ML INJ IV PRN (00:29)
[2017-11-06] MEDS: LORAZEPAM INJ 2 MG/1 ML VIAL IV PRN (00:29)
--- NOTE | 2017-11-08 16:02 | Death Summary ---
Summary Date : 11/06/17 Time of :: 00:43 Autopsy: No Resuscitation Status: Comfort Measures Only - Final Diagnosis (1) Comfort measures only status Is this a current diagnosis for this admission?: Yes (2) Acute on chronic combined systolic and diastolic CHF, NYHA class 4 Is this a current diagnosis for this admission?: Yes (3) Chronic pain syndrome Is this a current diagnosis for this admission?: Yes (4) Coronary artery disease Is this a current diagnosis for this admission?: Yes Hospital Course:: MARIN SCRUGGS JR is a 56 year old male with history of severe ischemic cardiomyopathy on dobutamine infusion, [place] (*6), DVT, PVD and HTN. He presented to the emergency department with altered mental status accompanied by his and his daughter. The ER physician initially made arrangements for patient to be transferred to a tertiary care center, but family members agreed to pursue comfort measures in an end-stage cardiomyopathy patient. Patient was very fatigued and weak at admission. Dobutamine infusion was eventually discontinued. Patient was made comfortable with scopolamine patch and pain medications to ensure comfort. Admission was uneventful and pain medications/ anti-anxiolitics were adjusted as needed. Family was with patient during admission, especially his . Patient peacefully on 11/06/17.
== END 2017-11-06 02:30 | DRG 302 ==
LOC: ER 01:57 → EH 07:35 → 3W 19:13
PROVIDERS: ADMIT Internal Medicine; ATTEND Internal Medicine
DX: I25.5 Ischemic cardiomyopathy (principal); I50.43 Acute on chronic combined systolic (congestive) and diastolic (congestive) heart failure; G93.41 Metabolic encephalopathy; Z51.5 Encounter for palliative care; G89.4 Chronic pain syndrome; I25.10 Atherosclerotic heart disease of native coronary artery without angina pectoris; I11.0 Hypertensive heart disease with heart failure; I73.9 Peripheral vascular disease, unspecified; J44.9 Chronic obstructive pulmonary disease, unspecified; M19.90 Unspecified osteoarthritis, unspecified site; F32.9 Major depressive disorder, single episode, unspecified; F41.9 Anxiety disorder, unspecified; I25.2 Old myocardial infarction; Z86.718 Personal history of other venous thrombosis and embolism; Z95.1 Presence of aortocoronary bypass graft; Z95.810 Presence of automatic (implantable) cardiac defibrillator; Z87.891 Personal history of nicotine dependence; Z79.82 Long term (current) use of aspirin; Z79.899 Other long term (current) drug therapy; Z88.8 Allergy status to other drugs, medicaments and biological substances; Z88.0 Allergy status to penicillin; Z91.013 Allergy to seafood; Z82.49 Family history of ischemic heart disease and other diseases of the circulatory system
CPT/HCPCS: 36415; 51702; 70450; 71045; 80053; 81001; 82140; 82550; 82553; 82803; 82962; 83605; 83735; 84484; 85025; 87040; 93005; 93010; 96374; 96375; 96376; 99285; J2060; J2270; J3010; J3490